=== PATIENT | female | born 1960 | race Caucasian/White ===

== ENCOUNTER → 2017-09-03 14:29 | Outpatient (CLI) | payer OTHER, SELFPAY ==
--- NOTE | 2017-09-03 14:34 | HPBI_ITS ---
MAMMOGRAPHY - BILATERAL SCREENING REASON FOR EXAM: Female, 56 years old. Routine annual screening examination. PERTINENT HISTORY: Aunt with breast cancer. TECHNIQUE: Digital bilateral breast andrzej (3D mammographic acquisition) in the CC and MLO projections. 2-D mediolateral oblique (MLO) and craniocaudad (CC) views of both breasts were obtained. CAD: Full Field Digital Mammography with Computer Added Detection was performed. COMPARISON: Comparison is made with prior examination dated February 04, 2017 and April 20, 2015. FINDINGS: Breast Composition: There are scattered areas of fibroglandular density. There are no dominant masses or suspicious calcifications. Stable asymmetry of breast tissue were more breast tissue is seen in the upper outer quadrant of the left breast as compared to the right side. Stable 5 mm well-defined nodule in the upper outer aspect of the right breast. This was demonstrated to be a cyst in the past. No other significant abnormalities are identified. There has been no significant change since the prior study. HPBI/SCREENING MAMM (CAD), BILAT IMPRESSION: Stable bilateral screening mammogram. Yearly follow-up mammogram recommended. (A) ASSESSMENT CATEGORY: BIRADS Category 2: Benign. A letter regarding these results will be sent to the patient by the facility within 30 days. Approximately 10% of breast cancers are not detected by mammography. A normal mammogram should not delay biopsy of a clinically suspicious abnormality. [id number] Electronically Signed: Real Jaquez MD at 7:59 EST Tel [phone], Service support ,
== END ==
PROVIDERS: Family Provider Internal Medicine; PCP Internal Medicine; Visit Provider Internal Medicine
DX: Z12.31 Encounter for screening mammogram for malignant neoplasm of breast (principal)
CPT/HCPCS: 77063; 77067

== ENCOUNTER → 2017-09-04 10:14 | Outpatient (CLI) | payer OTHER, SELFPAY ==
--- NOTE | 2017-09-04 10:15 | US_ITS ---
STUDY: ABDOMINAL ULTRASOUND - RIGHT UPPER QUADRANT REASON FOR VISIT: Female, 56 years old. History of fatty infiltration of the liver. TECHNIQUE: Ultrasound evaluation of the right upper quadrant was performed with real-time and static sherman-scale imaging. TECHNICAL QUALITY: Limited. Examination limited by bowel gas. COMPARISON: Comparison is made with prior study dated June 18, 2016. FINDINGS: Liver: The liver measures 14.0 cm. There is increased echogenicity consistent with fatty infiltration. The bile ducts are within normal limits. There is hepatic color flow. The direction of portal flow is hepatopetal. There is no demonstrated mass lesion. Gallbladder: The patient is status post cholecystectomy. Common Bile Duct (C.B.D.): The common bile duct measures 2.3 mm. Pancreas: There is nonvisualization of the pancreas due to overlying bowel gas. Right Kidney: Normal size of the right kidney. The right kidney measures 8.8 cm x 5.7 cm x 4.7 cm. Normal renal cortex. The right cortex measures 1.6 cm. There is no demonstrated renal mass or cyst. There is no right hydronephrosis. US/Liver IMPRESSION: Fatty infiltration of the liver. Electronically Signed: Real Jaquez MD at 12:24 EST Tel [phone], Service support ,
== END ==
PROVIDERS: Family Provider Internal Medicine; PCP Internal Medicine; Visit Provider Internal Medicine
DX: K76.0 Fatty (change of) liver, not elsewhere classified (principal)
CPT/HCPCS: 76705

== ENCOUNTER → 2017-09-05 12:42 | Outpatient (CLI) | payer OTHER, SELFPAY ==
--- NOTE | 2017-09-05 12:44 | CDU_ITS ---
Reason For Study: carotid stenosis Rt. Velocities/BP Lt. Velocities/BP Prox CCA 129.0/25.9 cm/sec. Prox CCA 116.0/35.8 cm/sec. Mid CCA 111.0/30.6 cm/sec. Mid CCA 113.0/29.9 cm/sec. Dist CCA 115.0/32.2 cm/sec. Dist CCA 96.2/32.8 cm/sec. Prox ICA 83.3/28.7 cm/sec. Prox ICA 76.8/27.6 cm/sec. Mid ICA 78.0/34.0 cm/sec. Mid ICA 106.0/45.1 cm/sec. Dist ICA 117.0/53.4 cm/sec. Dist ICA 80.3/17.0 cm/sec. Rt. ICA/CCA = 117.0/111.0=1.0. Lt. ICA/CCA = 106.0/113.0=0.94. Prox ECA 84.9/15.7 cm/sec. Prox ECA 80.3/17.0 cm/sec. Rt. Vert. 40.1/13.4 cm/sec. Lt. Vert. 49.5/20.4 cm/sec. Right Extracranial There is no significant atherosclerotic plaque noted in the right common carotid artery. There is intimal thickening but no significant atherosclerotic plaque noted in the right internal carotid artery. There is intimal thickening but no significant atherosclerotic plaque noted in the right external carotid artery. Antegrade flow is noted in the right vertebral artery. Left Extracranial There is intimal thickening but no significant atherosclerotic plaque noted in the left common carotid artery. There is intimal thickening but no significant atherosclerotic plaque noted in the left internal carotid artery. There is intimal thickening but no significant atherosclerotic plaque noted in the left external carotid artery. Antegrade flow is noted in the left vertebral artery. Procedure Carotid Duplex [id number]. The exam was diagnostic. Exam performed in department. Interpretation Summary Mild (<50%) stenosis right extracranial internal carotid. Mild (<50%) stenosis left extracranial internal carotid. Flow within the vertebral arteries is antegrade bilaterally. Ordering Physician: Anneliese Bland Referring Physician: Anneliese Bland Performed By: Paige Grimm, KEREN, RVT
== END ==
PROVIDERS: Family Provider Internal Medicine; PCP Internal Medicine; Visit Provider Internal Medicine
DX: I65.23 Occlusion and stenosis of bilateral carotid arteries (principal)
CPT/HCPCS: 93880

== ENCOUNTER → 2017-10-20 12:38 | Outpatient (CLI) | payer OTHER, SELFPAY ==
--- NOTE | 2017-10-20 12:41 | RAD_ITS ---
STUDY: X-RAY - RIGHT HAND REASON FOR EXAM: Female, 56 years old. Pain TECHNIQUE: Three view(s) of the hand were obtained. COMPARISON: None. FINDINGS: Bones: There are no acute osseous abnormalities. Joints: The visualized joints are unremarkable. Soft tissues: The soft tissues are unremarkable. Foreign body: None RAD/Hand Min 3 Views IMPRESSION: No significant abnormalities are seen radiographically in the right hand. Electronically Signed: Marie Sen MD at 9:02 EDT Tel Direct: [phone], Service support ,
--- NOTE | 2017-10-20 12:42 | VDLE_ITS ---
Reason For Study: LEG PAIN RIGHT LEFT CFV is compressible, spontaneous, phasic, GSV is normal. competent and demonstrates normal CFV is compressible, spontaneous, phasic, augmentation. competent, and demonstrates normal augmentation. FV is compressible, spontaneous, phasic, competent and demonstrates normal augmentation. POP V is compressible, spontaneous, phasic, competent and demonstrates normal augmentation. T/P Trunk is compressible. PTV is compressible. LT PerV is compressible. Hypoechoic structure noted lt medial pop space measuring 3.6 x 2.0 x 5.7 cm. Non- vascular. Interpretation Summary 1. Left leg with no DVT or SVT 2. Apparent left bakers cyst. Ordering Physician: Anneliese Bland Referring Physician: Anneliese Bland Performed By: Helen Day RVT
--- NOTE | 2017-10-20 12:50 | RAD_ITS ---
STUDY: X-RAY - RIGHT FOOT CLINICAL: Female, 56 years old. Pain TECHNIQUE: Three view(s) of the foot were obtained. COMPARISON: None. FINDINGS: Bones: There are no acute osseous abnormalities. There is a small spur off the inferior calcaneus. Joints: The visualized joints are unremarkable. Soft tissues: The soft tissues are unremarkable. Foreign body: None RAD/Foot min 3 Views IMPRESSION: No significant abnormalities are seen radiographically in the right foot. Electronically Signed: Marie Sen MD at 9:01 EDT Tel Direct: [phone], Service support ,
--- NOTE | 2017-10-20 13:01 | RAD_ITS ---
STUDY: X-RAY - LEFT HAND REASON FOR EXAM: Female, 56 years old. Pain TECHNIQUE: Three view(s) of the hand were obtained. COMPARISON: None. FINDINGS: Bones: There are no acute osseous abnormalities. Joints: The visualized joints are unremarkable. Soft tissues: The soft tissues are unremarkable. Foreign body: None RAD/Hand Min 3 Views IMPRESSION: No significant abnormalities are seen radiographically in the left hand. Electronically Signed: Marie Sen MD at 9:03 EDT Tel Direct: [phone], Service support ,
--- NOTE | 2017-10-20 13:04 | RAD_ITS ---
STUDY: X-RAY - LEFT FOOT CLINICAL: Female, 56 years old. Pain TECHNIQUE: Three view(s) of the foot were obtained. COMPARISON: None. FINDINGS: Bones: There are no acute osseous abnormalities. There is a small spur off the inferior calcaneus. Joints: The visualized joints are unremarkable. Soft tissues: The soft tissues are unremarkable. Foreign body: None RAD/Foot min 3 Views IMPRESSION: No significant abnormalities are seen radiographically in the left foot. Electronically Signed: Marie Sen MD at 8:58 EDT Tel Direct: [phone], Service support ,
== END ==
PROVIDERS: Family Provider Internal Medicine; PCP Internal Medicine; Visit Provider Internal Medicine
DX: M79.605 Pain in left leg (principal); M79.671 Pain in right foot; M79.672 Pain in left foot; M25.541 Pain in joints of right hand; M25.542 Pain in joints of left hand
CPT/HCPCS: 73130; 73630; 93971

== ENCOUNTER 2017-11-19 07:23 | Day surgery (SDC) | payer OTHER, SELFPAY ==
[2017-11-19 07:39] VITALS: BP 120/84; PULSE 76; RESP 14; TEMP 36.7; O2SAT 99; BMI 35.9
--- NOTE | 2017-11-19 08:21 | PCM.HP.STD ---
Problem List (1) Screening for colon cancer Status: Acute History of Present Illness Date of Admission: 11/19/17 The patient is a 57 year old F who presents today for screening colonoscopy. Past Medical History Allergies Latex, Natural Rubber Allergy (Verified 11/13/17 09:31) Rash nitrofurantoin [From Macrobid] Allergy (Verified 11/13/17 09:31) Rash nitrofurantoin macrocrystalline [From Macrobid] Allergy (Verified 11/13/17 09:31) Rash Sulfa (Sulfonamide Antibiotics) Allergy (Verified 11/13/17 09:31) Unknown codeine Adverse Reaction (Verified 11/13/17 09:31) Nausea/Vom/Diarrhea Home Medications: Ambulatory Orders Medication Instructions Recorded traZODone [Desyrel] 50 mg PO QHS 07/10/14 Albuterol Aerosols [Ventolin 2.5 mg INHALATION Q4H PRN PRN 11/13/17 Aerosols] Aspirin E.C. [Ecotrin] 81 mg PO DAILY@0800 11/13/17 Atorvastatin Calcium [Lipitor] 10 mg PO QODAY 11/13/17 Budesonide/Formoterol 160/4.5 1 puff INHALATION BID 11/13/17 [Symbicort 160/4.5 Mcg Inhaler (SP)] Cholecalciferol (Vitamin D3) 2,000 unit PO DAILY 11/13/17 [Vitamin D3] CycloSPORINE Ophthalmic [Restasis 1 drop EACH EYE BID 11/13/17 Ophthalmic] Escitalopram Oxalate [Lexapro] 10 mg PO QHS 11/13/17 Estradiol [Estrace Vaginal Cream] 1 dose VAGINAL QWEEK 11/13/17 Iron Carbonyl [Feosol] 45 mg PO QODAY 11/13/17 Multivitamin [Multiple Vitamins] 1 each PO DAILY 11/13/17 [place]-3 Fatty Acids/Fish Oil [Fish 1 each PO DAILY 11/13/17 Oil 1,000 mg Capsule] Ubidecarenone/Vitamin E Mixed 1 each PO QHS 11/13/17 [[id number]-Eno E 100 mg-10 Unit Sfg] Psychiatric History: No pertinent psych hx 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 Denies: Dysphasia, Ear Pain, Eye Pain, Head Aches, Hearing Changes, Sore Throat Cardiovascular: Reports: - - Patient has had heart palpitations in the past. Denies: Chest Pain, Chest Pressure, Chest Tightness Respiratory: Reports: Shortness of breath upon exertion, - - Patient will get short of breath walking up 2 flights of stairs Gastrointestinal: Denies: Abdominal Pain, Constipation, Diarrhea, Hematemesis, Nausea, Melena, Vomiting VTE Information - Inpt Only VTE Present on Admission: No VTE Mechan Device Prophylaxis: None VTE Pharm Prophylaxis ordered?: No Reason prophylaxis not ordered:: Treatment Not Indicated Patient Problems: Active and Suspected Problems Screening for colon cancer (Acute) - Physical Exam General: Alert, Oriented x3 Lungs: Clear to auscultation Cardiovascular: Regular rate, Regular Rhythm, No murmurs Abdomen: Bowel Sounds Present, Soft, Non Tender, Non-Distended Vital Signs Temp Pulse Resp BP Pulse Ox 98.1 F 76 14 120/84 H 99 11/19/17 07:39 11/19/17 07:39 11/19/17 07:39 11/19/17 07:39 11/19/17 07:39 Oxygen Delivery Method Room Air Weight: 196 lb 10.437 oz Body Mass Index (BMI) 35.9 Assessment/Plan Active and Suspected Problems Screening for colon cancer (Acute) My plan is to perform a screening colonoscopy on the patient.
[2017-11-19 08:24] VITALS: BP 109/70; BP 120/84; PULSE 73; RESP 18; TEMP 36.1; O2SAT 98
--- NOTE | 2017-11-19 08:25 | HP.PCM_ITS ---
Problem List (1) Screening for colon cancer Status: Acute History of Present Illness Date of Admission: 11/19/17 The patient is a 57 year old F who presents today for screening colonoscopy. Past Medical History Allergies Latex, Natural Rubber Allergy (Verified 11/13/17 09:31) Rash nitrofurantoin [From Macrobid] Allergy (Verified 11/13/17 09:31) Rash nitrofurantoin macrocrystalline [From Macrobid] Allergy (Verified 11/13/17 09:31 ) Rash Sulfa (Sulfonamide Antibiotics) Allergy (Verified 11/13/17 09:31) Unknown codeine Adverse Reaction (Verified 11/13/17 09:31) Nausea/Vom/Diarrhea Home Medications: Ambulatory Orders Medication Instructions Recorded traZODone [Desyrel] 50 mg PO QHS 07/10/14 Albuterol Aerosols [Ventolin 2.5 mg INHALATION Q4H PRN PRN 11/13/17 Aerosols] Aspirin E.C. [Ecotrin] 81 mg PO DAILY@0800 11/13/17 Atorvastatin Calcium [Lipitor] 10 mg PO QODAY 11/13/17 Budesonide/Formoterol 160/4.5 1 puff INHALATION BID 11/13/17 [Symbicort 160/4.5 Mcg Inhaler (SP)] Cholecalciferol (Vitamin D3) 2,000 unit PO DAILY 11/13/17 [Vitamin D3] CycloSPORINE Ophthalmic [Restasis 1 drop EACH EYE BID 11/13/17 Ophthalmic] Escitalopram Oxalate [Lexapro] 10 mg PO QHS 11/13/17 Estradiol [Estrace Vaginal Cream] 1 dose VAGINAL QWEEK 11/13/17 Iron Carbonyl [Feosol] 45 mg PO QODAY 11/13/17 Multivitamin [Multiple Vitamins] 1 each PO DAILY 11/13/17 [place]-3 Fatty Acids/Fish Oil [Fish 1 each PO DAILY 11/13/17 Oil 1,000 mg Capsule] Ubidecarenone/Vitamin E Mixed 1 each PO QHS 11/13/17 [Wzw28-Owt E 100 mg-10 Unit Sfg] Psychiatric History: No pertinent psych hx 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 Denies: Dysphasia, Ear Pain, Eye Pain, Head Aches, Hearing Changes, Sore Throat Cardiovascular: Reports: - - Patient has had heart palpitations in the past. Denies: Chest Pain, Chest Pressure, Chest Tightness Respiratory: Reports: Shortness of breath upon exertion, - - Patient will get short of breath walking up 2 flights of stairs Gastrointestinal: Denies: Abdominal Pain, Constipation, Diarrhea, Hematemesis, Nausea, Melena, Vomiting VTE Information - Inpt Only VTE Present on Admission: No VTE Mechan Device Prophylaxis: None VTE Pharm Prophylaxis ordered?: No Reason prophylaxis not ordered:: Treatment Not Indicated Patient Problems: Active and Suspected Problems Screening for colon cancer (Acute) - Physical Exam General: Alert, Oriented x3 Lungs: Clear to auscultation Cardiovascular: Regular rate, Regular Rhythm, No murmurs Abdomen: Bowel Sounds Present, Soft, Non Tender, Non-Distended Vital Signs Temp Pulse Resp BP Pulse Ox 98.1 F 76 14 120/84 H 99 11/19/17 07:39 11/19/17 07:39 11/19/17 07:39 11/19/17 07:39 11/19/17 07:39 Oxygen Delivery Method Room Air Weight: 196 lb 10.437 oz Body Mass Index (BMI) 35.9 Assessment/Plan Active and Suspected Problems Screening for colon cancer (Acute) My plan is to perform a screening colonoscopy on the patient.
--- NOTE | 2017-11-19 08:25 | PCM.OPRPT ---
Problem List (1) Screening for colon cancer Status: Acute Report of Operation Date of Procedure: 11/19/17 Pre-Operative Diagnosis: z12.11 screening colonoscopy Post-Operative Diagnosis: Same Surgery/Procedure Performed:: [id number] colonoscopy Type of Anesthesia:: MAC Anesthesiologist: Seth Quintanilla Description of Procedure: Patient was brought into the endoscopy suite. Placed on the left lateral decubitus position. Was given graded anesthesia. The scope was inserted into the rectum. The scope was directed through the sigmoid colon, descending colon, transverse colon, ascending colon, and into the cecum. Operative findings: 1. Cecum: Normal appearance no mass lesions normal ileocecal valve. 2. Ascending colon: Normal appearance no mass lesions. 3. Transverse colon: Normal appearance no mass lesions. 4. Descending colon: Normal appearance no mass lesions. 5. Sigmoid colon: Normal appearance no mass lesions a few scattered diverticuli were seen all small mouth. 6. Rectum: Normal appearance no mass lesions she had a few internal hemorrhoids identified. Scope was withdrawn digital rectal exam was performed showing no masses within the anus. Patient had an excellent bowel prep the mucosal all look normal she has a stable colonoscopy and will not need to have a repeat colonoscopy for 10 years. - Admit VTE Documentation VTE Present on Admission: No VTE Mechan Device Prophylaxis: None VTE Pharm Prophylaxis ordered?: No Reason prophylaxis not ordered:: Treatment Not Indicated
--- NOTE | 2017-11-19 08:28 | OP.PCM_ITS ---
Problem List (1) Screening for colon cancer Status: Acute Report of Operation Date of Procedure: 11/19/17 Pre-Operative Diagnosis: z12.11 screening colonoscopy Post-Operative Diagnosis: Same Surgery/Procedure Performed:: [id number] colonoscopy Type of Anesthesia:: MAC Anesthesiologist: Seth Quintanilla Description of Procedure: Patient was brought into the endoscopy suite. Placed on the left lateral decubitus position. Was given graded anesthesia. The scope was inserted into the rectum. The scope was directed through the sigmoid colon, descending colon , transverse colon, ascending colon, and into the cecum. Operative findings: 1. Cecum: Normal appearance no mass lesions normal ileocecal valve. 2. Ascending colon: Normal appearance no mass lesions. 3. Transverse colon: Normal appearance no mass lesions. 4. Descending colon: Normal appearance no mass lesions. 5. Sigmoid colon: Normal appearance no mass lesions a few scattered diverticuli were seen all small mouth. 6. Rectum: Normal appearance no mass lesions she had a few internal hemorrhoids identified. Scope was withdrawn digital rectal exam was performed showing no masses within the anus. Patient had an excellent bowel prep the mucosal all look normal she has a stable colonoscopy and will not need to have a repeat colonoscopy for 10 years. - Admit VTE Documentation VTE Present on Admission: No VTE Mechan Device Prophylaxis: None VTE Pharm Prophylaxis ordered?: No Reason prophylaxis not ordered:: Treatment Not Indicated
[2017-11-19 08:30] VITALS: BP 116/65; BP 120/84; PULSE 65; RESP 18; O2SAT 97
[2017-11-19 08:35] VITALS: BP 107/75; BP 120/84; PULSE 67; RESP 18; O2SAT 98
[2017-11-19 08:40] VITALS: BP 114/83; BP 120/84; PULSE 60; RESP 18; TEMP 36.1; O2SAT 98
[2017-11-19 08:55] VITALS: BP 120/84
== END 2017-11-19 09:11 | disposition home or self-care (01) ==
LOC: EN 07:23 → AC 07:38
PROVIDERS: Family Provider Internal Medicine; PCP Internal Medicine; Visit Provider Surgery
PROC: 0DJD8ZZ Inspection of Lower Intestinal Tract, Via Natural or Artificial Opening Endoscopic (ICD-10-PCS; CPT 45378; principal; 2017-11-19 08:25)
DX: Z12.11 Encounter for screening for malignant neoplasm of colon (principal); K64.8 Other hemorrhoids; D64.9 Anemia, unspecified; E78.00 Pure hypercholesterolemia, unspecified; F41.9 Anxiety disorder, unspecified; F32.9 Major depressive disorder, single episode, unspecified; J45.909 Unspecified asthma, uncomplicated; Z85.51 Personal history of malignant neoplasm of bladder; Z87.891 Personal history of nicotine dependence; Z98.84 Bariatric surgery status; Z86.711 Personal history of pulmonary embolism; Z87.442 Personal history of urinary calculi; Z79.51 Long term (current) use of inhaled steroids; Z79.82 Long term (current) use of aspirin; Z79.899 Other long term (current) drug therapy
CPT/HCPCS: 45378; J7120; J1610; J2405

== ENCOUNTER → 2018-01-10 10:49 | Outpatient (CLI) | payer OTHER, SELFPAY ==
[2018-01-10 11:24] LABS: Absolute Lymphocyte Count 1.74 X10^3/ul (0.83-4.51); Absolute Neutrophil Count 3.1 X10^3/uL (2.0-7.7); Basophil# 0.04 X10^3/uL; Basophil% 0.7 % (0-1); Eosinophil# 0.36 X10^3/uL; Eosinophils% 6.4 % (0-5); Hematocrit 42.2 % (37-47); Lymphocyte # 1.74 X10^3/ul (4.0); Lymphocyte % 31.1 % (19-41); Mean Corp Hgb Conc 33.2 g/gl (32-36); Mean Corpuscular Hgb 30.2 pg (27.0-32.0); Mean Corpuscular Volume 91.1 fL (81-99); Mean Platelet Vol. 11.8 fl (6.2-12.0); Monocyte# 0.32 X10^3/uL; Monocyte% 5.7 % (0-10); Neutrophil # 3.13 X10^3/uL (2.7-7.7); Neutrophil % 56.1 % (47-70); Platelet Count 210 K/mm3 (150-450); Red Blood Count 4.63 M/mm3 (4.2-5.4); White Blood Count 5.6 K/mm3 (4.4-11.0)
[2018-01-10 11:25] LABS: POSITIVE COUNT NO; POSITIVE DIFFERENTIAL NO; POSITIVE MORPHOLOGY NO
[2018-01-10 11:32] LABS: Erythrocyte Sedimentation Rate 26 mm/hr (0-30)
[2018-01-10 11:52] LABS: AST(SGOT) 18 U/L (15-37); Alanine Aminotransfer ALT/SGPT 21 U/L (13-56); Albumin, Serum 3.6 g/dL (3.2-5.0); Alkaline Phosphatase 88 U/L (45-117); Anion Gap 8 (5-15); BUN 21 mg/dL (7-18); BUN/Creat Ratio 25.4 RATIO (10-20); CRP 6.71 mg/L (0.0-3.0); Calcium,Total 9.1 mg/dL (8.5-10.1); Chloride 109 mmol/L (98-107); Cholesterol 175 mg/dL (200); Creatinine, Serum 0.83 mg/dL (0.55-1.02); EST Glomerular Filtration Rate 76 mL/min (>60); Est Glom Filt Rate - Afr Amer 92 mL/min (>60); Globulin 3.5 g/dL (2.2-4.2); Glucose 86 mg/dL (74-106); High Density Lipoprotein 75 mg/dL; Iron 87 ug/dL (50-170); Potassium 4.1 mmol/L (3.5-5.1); Protein, Total 7.1 g/dL (6.4-8.2); Sodium Level 143 mmol/L (136-145); Triglycerides 83 mg/dL; Very Low Density Lipoprotein 17 mg/dL (5-40)
[2018-01-12 09:32] LABS: Vitamin B12 368 pg/mL (211-911); Vitamin D,25 Hydroxy 32.6 ng/mL (29.95-100.01)
[2018-01-12 15:08] LABS: SJOGREN'S Anti-SS-A test < 0.2 AI (0.0-0.9)
[2018-01-12 17:49] LABS: SJOGREN'S Anti-SS-B test < 0.2 AI (0.0-0.9)
[2018-01-13 09:34] LABS: CCP IgG Antibodies 6 units (0-19)
== END ==
PROVIDERS: Family Provider Internal Medicine; PCP Internal Medicine; Visit Provider Internal Medicine
DX: E78.2 Mixed hyperlipidemia (principal); M25.541 Pain in joints of right hand; M25.542 Pain in joints of left hand; I10 Essential (primary) hypertension; E55.9 Vitamin D deficiency, unspecified; Z98.84 Bariatric surgery status
CPT/HCPCS: 36415; 80053; 80061; 82306; 82607; 83540; 85025; 85652; 86140; 86200; 86235

== ENCOUNTER → 2018-02-17 13:24 | Outpatient (CLI) | payer OTHER, SELFPAY ==
--- NOTE | 2018-02-17 13:30 | BD_ITS ---
STUDY: DUAL ENERGY X-RAY ABSORPTIOMETRY / DXA REASON FOR EXAM: Female, 57 years old. The patient is postmenopausal. No loss of height. TECHNIQUE: Bone Mineral Density (BMD) measurements of lumbar spine and bilateral hips were obtained. COMPARISON: Comparison is made with prior study dated February 06, 2016. FINDINGS: Lumbar Spine (L1-L4): g/cm2 (1.045) / T-score (-1.1) / Z-score (-0.2) Findings are suggestive of osteopenia with a low fracture risk. Left Femur Total: g/cm2 (0.969) / T-score (-0.3) / Z-score (0.4) Left Femoral Neck: g/cm2 (0.925) / T-score (-0.8) / Z-score (0.2) Right Femur Total: g/cm2 (0.908) / T-score (-0.8) / Z-score (-0.1) Right Femoral Neck: g/cm2 (0.893) / T-score (-1.0) / Z-score (0.0) The T-Scores on the most recent prior examination were: Lumbar Spine (L1-L4): There has been worsening of bone density since the previous examination. Left Femur Total: which represents a worsening of 11.3%. Right Femur Total: which represents a worsening of 4.2%. BD/Dexa Bone Density Study IMPRESSION: The patient is considered osteopenic as outlined below according to World Petr Organization (WHO) criteria with a low fracture risk. There has been worsening of bone density since the previous examination. Reference Information: The T-score is the number of standard deviations above or below the standard which is normal for young adults at their peak bone mineral density. The World Health Organization (WHO) interprets the T-scores as follows: Above -1 Normal bone density Between -1 and -2.5 Osteopenia Equal to / or below -2.5 Osteoporosis As a practical clinical guideline, osteopenia may be graded as follows: Mild -1 through -1.5 Moderate -1.6 through -2.0 Severe -2.1 through -2.4 The Z-score is the number of standard deviations above or below age-matched controls. A Z-score of less than -1.5 would be considered abnormal. References: 1. NIH Osteoporosis and Related Bone Diseases http://www.osteo.org 2. International Society for Clinical Densitometry http://www.iscd.org 3. National Osteoporosis Foundation http://www.nof.org Electronically Signed: Real Jaquez MD at 15:42 EDT Tel [phone], Service support ,
== END ==
PROVIDERS: Family Provider Internal Medicine; PCP Internal Medicine; Visit Provider Internal Medicine
DX: Z78.0 Asymptomatic menopausal state (principal)
CPT/HCPCS: 77080

== ENCOUNTER → 2018-08-03 10:23 | Outpatient (CLI) | payer OTHER, SELFPAY ==
--- NOTE | 2018-08-03 10:27 | RAD_ITS ---
STUDY: X-RAY - RIGHT KNEE REASON FOR EXAM: Female, 57 years old. Pain. TECHNIQUE: 4 view(s) of the knee. COMPARISON: None. FINDINGS: Normal visualized distal femur. Normal visualized proximal tibia and fibula. Normal proximal tibiofibular articulation. There is mild degenerative arthrosis of the medial femorotibial compartment. There is mild degenerative arthrosis of the lateral femorotibial compartment. There is mild degenerative arthrosis of the patellofemoral articulation. The soft tissue structures are unremarkable. RAD/Knee 4 or More Views IMPRESSION: Mild tricompartmental osteoarthrosis with no evidence of acute osseous injury. Electronically Signed: Jacobo Bourgeois DO at 21:40 EST , Service support ,
--- NOTE | 2018-08-03 10:27 | RAD_ITS ---
STUDY: X-RAY - LEFT KNEE REASON FOR EXAM: Female, 57 years old. Pain. TECHNIQUE: 4 view(s) of the knee. COMPARISON: None. FINDINGS: Normal visualized distal femur. Normal visualized proximal tibia and fibula. Normal proximal tibiofibular articulation. There is mild degenerative arthrosis of the medial femorotibial compartment. There is mild degenerative arthrosis of the lateral femorotibial compartment. There is mild degenerative arthrosis of the patellofemoral articulation. The soft tissue structures are unremarkable. RAD/Knee 4 or More Views IMPRESSION: Mild tricompartmental osteoarthrosis with no evidence of acute osseous injury. Electronically Signed: Jacobo Bourgeois DO at 22:04 EST , Service support ,
== END ==
PROVIDERS: Family Provider Internal Medicine; PCP Internal Medicine; Referring Provider Internal Medicine; Visit Provider Internal Medicine
DX: M25.561 Pain in right knee (principal); M25.562 Pain in left knee
CPT/HCPCS: 73564

== ENCOUNTER → 2018-09-10 08:18 | Outpatient (CLI) | payer OTHER, SELFPAY ==
--- NOTE | 2018-09-10 08:21 | BI_ITS ---
MAMMOGRAPHY - BILATERAL SCREENING REASON FOR EXAM: Female, 57 years old. Routine annual screening examination. PERTINENT HISTORY: Aunt with breast cancer. TECHNIQUE: Digital bilateral breast andrzej (3D mammographic acquisition) in the CC and MLO projections. 2-D mediolateral oblique (MLO) and craniocaudad (CC) views of both breasts were obtained. CAD: Full Field Digital Mammography with Computer Added Detection was performed. COMPARISON: Comparison is made with prior examination dated September 03, 2017 and August 07, 2016. FINDINGS: Breast Composition: There are scattered areas of fibroglandular density. There are no dominant masses or suspicious calcifications. Stable asymmetry of breast tissue were more breast tissue is seen in the upper outer quadrant of the left breast as compared to the right side. Stable 5.2 mm x 4.8 mm well-defined nodule in the upper lateral portion of the right breast. No other significant abnormalities are identified. There has been no significant change since the prior study. BI/SCREENING MAMM (CAD), BILAT IMPRESSION: Stable bilateral screening mammogram. Yearly follow-up mammogram recommended. (A) ASSESSMENT CATEGORY: BIRADS Category 2: Benign. A letter regarding these results will be sent to the patient by the facility within 30 days. Approximately 10% of breast cancers are not detected by mammography. A normal mammogram should not delay biopsy of a clinically suspicious abnormality. [id number] Electronically Signed: Real Jaquez MD at 9:42 EST , Service support ,
--- NOTE | 2018-09-10 08:42 | US_ITS ---
STUDY: ABDOMINAL ULTRASOUND - RIGHT UPPER QUADRANT REASON FOR VISIT: Female, 57 years old. Fatty liver TECHNIQUE: Ultrasound evaluation of the right upper quadrant was performed with real-time and static sherman-scale imaging. TECHNICAL QUALITY: Adequate. COMPARISON: September 04, 2017 ultrasound, November 03, 2014 CT scan abdomen. FINDINGS: Liver: The liver measures 14.7 cm. There is minimal increased echogenicity consistent with fatty infiltration. The bile ducts are within normal limits. There is hepatic color flow. The direction of portal flow is hepatopetal. There is no demonstrated mass lesion. Gallbladder: The gallbladder is been surgically removed. Common Bile Duct (C.B.D.): The common bile duct measures 2.8 mm. Pancreas: Normal size of the head, body and tail of the pancreas. There is normal echogenicity of the pancreas. There is no demonstrated pancreatic mass or cyst. Right Kidney: Normal size of the right kidney. The right kidney measures 9.2 x 5.0 x 5.1 cm. Normal renal cortex. The right cortex measures 1.9 cm. There is a visualized focus of shadowing within the periphery of the right kidney suggesting possible capsular calcification. There is focal thinning of the right renal parenchyma as seen on the prior study. There is no right hydronephrosis. US/Liver IMPRESSION: Minimal hepatic steatosis. Normal size liver. Status post cholecystectomy Persistent focal cortical thinning of the inferior pole the right kidney compatible with old infection or infarction. Electronically Signed: Valeria Gold MD at 12:09 EST Tel , Service support ,
--- NOTE | 2018-09-10 09:46 | CDU_ITS ---
Reason For Study: carotid stenosis Rt. Velocities/BP Lt. Velocities/BP Prox CCA 94.4/33.4 cm/sec. Prox CCA 107/39.9 cm/sec. Mid CCA 99.1/36.4 cm/sec. Mid CCA 112/39.3 cm/sec. Dist CCA 92.0/36.4 cm/sec. Dist CCA 87.9/35.8 cm/sec. Prox ICA 78.6/31.7 cm/sec. Prox ICA 77.0/33.0 cm/sec. Mid ICA 63.9/31.7 cm/sec. Mid ICA 68.4/24.4 cm/sec. Dist ICA 91.5/41.6 cm/sec. Dist ICA 69.0/33.4 cm/sec. Rt. ICA/CCA = .9. Lt. ICA/CCA = .7. Prox ECA 65.1/14.7 cm/sec. Prox ECA 69.9/16.4 cm/sec. Rt. Vert. 42.2/16.4 cm/sec. Lt. Vert. 44.6/19.9 cm/sec. Right Extracranial There is intimal thickening but no significant atherosclerotic plaque noted in the right common carotid artery. There is intimal thickening but no significant atherosclerotic plaque noted in the right internal carotid artery. There is intimal thickening but no significant atherosclerotic plaque noted in the right external carotid artery. Antegrade flow is noted in the right vertebral artery. Left Extracranial There is intimal thickening but no significant atherosclerotic plaque noted in the left common carotid artery. There is intimal thickening but no significant atherosclerotic plaque noted in the left internal carotid artery. There is intimal thickening but no significant atherosclerotic plaque noted in the left external carotid artery. Antegrade flow is noted in the left vertebral artery. Procedure Carotid Duplex 27810. The exam was diagnostic. Exam performed in department. Interpretation Summary Mild (<50%) stenosis right extracranial internal carotid. Mild (<50%) stenosis left extracranial internal carotid. Flow within the vertebral arteries is antegrade bilaterally. Ordering Physician: Anneliese Bland Performed By: Blu Palm RVT
== END ==
PROVIDERS: Family Provider Internal Medicine; PCP Internal Medicine; Referring Provider Internal Medicine; Visit Provider Internal Medicine
DX: I65.23 Occlusion and stenosis of bilateral carotid arteries (principal); K76.0 Fatty (change of) liver, not elsewhere classified; Z12.31 Encounter for screening mammogram for malignant neoplasm of breast
CPT/HCPCS: 76705; 77063; 77067; 93880

== ENCOUNTER → 2019-09-13 07:50 | Outpatient (CLI) | payer OTHER, SELFPAY ==
--- NOTE | 2019-09-13 07:59 | US_ITS ---
STUDY: ABDOMINAL ULTRASOUND - RIGHT UPPER QUADRANT REASON FOR VISIT: Female, 58 years old fatty liver TECHNIQUE: Ultrasound evaluation of the right upper quadrant was performed with real-time and static sherman-scale imaging. TECHNICAL QUALITY: Adequate. COMPARISON: 09/10/2018 FINDINGS: Liver: The liver measures 10.3 cm. There is increased echogenicity consistent with fatty infiltration. The bile ducts are within normal limits. There is hepatic color flow. The direction of portal flow is hepatopetal. There is no demonstrated mass lesion. Gallbladder: The patient is status post cholecystectomy.. Common Bile Duct (C.B.D.): The common bile duct measures 4 mm. Pancreas: Normal size of the head, body and tail of the pancreas. There is normal echogenicity of the pancreas. There is no demonstrated pancreatic mass or cyst. Right Kidney: Normal size of the right kidney. The right kidney measures 8.5 cm. Normal renal cortex. The right cortex measures 0.8 cm. Scar in the midsection the right kidney. There is no right hydronephrosis. US/Liver IMPRESSION: Fatty infiltration of the liver. Electronically Signed: Vince Nuñez MD at 13:52 EST Tel , Service support ,
--- NOTE | 2019-09-13 07:59 | BI_ITS ---
MAMMOGRAPHY - BILATERAL SCREENING REASON FOR EXAM: Female, 58 years old. Routine annual screening examination. PERTINENT HISTORY: Family and had breast cancer BILATERAL DIGITAL MAMMOGRAM WITH TOMOSYNTHESIS: Mediolateraloblique and craniocaudal views demonstrate no evidence of dominant parenchymal masses. No cluster of microcalcification or architectural distortion is seen. No evidence of skin thickening. No significant change since 09/10/2018. Breast Density: There are scattered areas of fibroglandular density. CAD was used to assist in final assessment. IMPRESSION: NORMAL MAMMOGRAM BILATERALLY. FINAL ASSESSMENT: BIRAD 1 (NEGATIVE) YEARLY MAMMOGRAM RECOMMENDED Electronically Signed: Thomas Holloway, at 17:05 EST Tel , Service support , BI/SCREEN MAMM (CAD) W/AMISH OROZCO
--- NOTE | 2019-09-13 08:43 | CDU_ITS ---
Reason For Study: STENOSIS Rt. Velocities/BP Lt. Velocities/BP Prox CCA 98/30 cm/sec. Prox CCA 89/33 cm/sec. Mid CCA 102/32 cm/sec. Mid CCA 105/39 cm/sec. Dist CCA 102/42 cm/sec. Dist CCA 87/32 cm/sec. Prox ICA 92/32 cm/sec. Prox ICA 96/32 cm/sec. Mid ICA 64/27 cm/sec. Mid ICA 93/49 cm/sec. Dist ICA 80/38 cm/sec. Dist ICA 127/54 cm/sec. Rt. ICA/CCA = .9. Lt. ICA/CCA = 1.2. Prox ECA 71/19 cm/sec. Prox ECA 82/21 cm/sec. Rt. Vert. 35/14 cm/sec. Lt. Vert. 58/25 cm/sec. Right Extracranial There is homogeneous, smooth atherosclerotic plaque noted in the right common carotid artery. There is homogeneous, smooth atherosclerotic plaque noted in the right internal carotid artery. There is no significant atherosclerotic plaque noted in the right external carotid artery. Antegrade flow is noted in the right vertebral artery. Left Extracranial There is homogeneous, smooth atherosclerotic plaque noted in the left common carotid artery. There is heterogeneous, smooth atherosclerotic plaque noted in the left internal carotid artery. There is homogeneous, smooth atherosclerotic plaque noted in the left external carotid artery. Antegrade flow is noted in the left vertebral artery. Interpretation Summary Mild (<50%) stenosis right extracranial internal carotid. Mild (<50%) stenosis left extracranial internal carotid. Flow within the vertebral arteries is antegrade bilaterally. Ordering Physician: Anneliese Bland Referring Physician: Anneliese Bland Performed By: Kylee Lambert, RDCS, RVT
== END ==
PROVIDERS: Family Provider Internal Medicine; PCP Internal Medicine; Referring Provider Internal Medicine; Visit Provider Internal Medicine
DX: Z12.31 Encounter for screening mammogram for malignant neoplasm of breast (principal); I65.23 Occlusion and stenosis of bilateral carotid arteries; K76.0 Fatty (change of) liver, not elsewhere classified
CPT/HCPCS: 76705; 77063; 77067; 93880

== ENCOUNTER → 2020-04-25 10:57 | Outpatient (CLI) | payer OTHER, SELFPAY ==
[2020-04-25 11:10] LABS: Absolute Lymphocyte Count 1.32 X10^3/uL (0.83-4.51); Absolute Neutrophil Count 3.3 X10^3/uL (2.0-7.7); Basophil# 0.04 X10^3/uL; Basophil% 0.7 % (0-1); Eosinophil# 0.45 X10^3/uL; Eosinophils% 8.1 % (0-5); Hematocrit 42.9 % (37-47); Hemoglobin 13.8 g/dL (12.0-15.0); Lymphocyte # 1.32 X10^3/ul (4.0); Lymphocyte % 23.7 % (19-41); Mean Corp Hgb Conc 32.2 g/dL (32-36); Mean Corpuscular Hgb 30.7 pg (27.0-32.0); Mean Corpuscular Volume 95.3 fL (81-99); Monocyte# 0.46 X10^3/uL; Monocyte% 8.3 % (0-10); NRBC Flagged by Analyzer 0 % (0-5); Neutrophil # 3.29 X10^3/uL (2.7-7.7); Platelet Count 210 K/mm3 (150-450); RBC Distribution Width CV 12.9 % (11.6-14.6); RBC Distribution Width SD 44.8 fl (35.1-43.9); White Blood Count 5.6 K/mm3 (4.4-11.0)
[2020-04-25 11:19] LABS: D-Dimer Quantitative (DVT/PE) <= 0.27 FEU/ug/m (0.27-0.49)
[2020-04-25 11:31] LABS: AST(SGOT) 17 U/L (15-37); Alanine Aminotransfer ALT/SGPT 22 U/L (13-56); Albumin, Serum 3.6 g/dL (3.2-5.0); Alkaline Phosphatase 97 U/L (45-117); Anion Gap 4 (5-15); BUN 18 mg/dL (7-18); BUN/Creat Ratio 19.9 RATIO (10-20); Calcium,Total 9.3 mg/dL (8.5-10.1); Chloride 109 mmol/L (98-107); EST Glomerular Filtration Rate 68 mL/min (>60); Est Glom Filt Rate - Afr Amer 82 mL/min (>60); Globulin 3.7 g/dL (2.2-4.2); Glucose 91 mg/dL (74-106); Potassium 4.1 mmol/L (3.5-5.1); Protein, Total 7.3 g/dL (6.4-8.2); Sodium Level 140 mmol/L (136-145); Thyroid Stim Hormone (TSH) 3.22 uIU/mL (0.358-3.74)
== END ==
PROVIDERS: PCP Internal Medicine; Referring Provider Internal Medicine; Visit Provider Internal Medicine
DX: R07.89 Other chest pain (principal); R00.2 Palpitations
CPT/HCPCS: 80053; 84443; 84484; 85025; 85379

== ENCOUNTER → 2020-05-01 12:56 | Outpatient (CLI) | payer OTHER, SELFPAY ==
--- NOTE | 2020-05-01 13:00 | ECHOCS_ITS ---
Reason For Study: CP Procedure This was a 2D Doppler, Color Flow transthoracic echocardiogram. The study was technically difficult. Contrast injection was performed. Exam performed in department. Left Ventricle Normal LV size. Left ventricular systolic function is normal. The estimated ejection fraction is 65 %. No evidence for diastolic dysfunction. Right Ventricle Normal RV size. Normal systolic function. Atria Normal left atrium. Normal right atrium. No doppler evidence for ASD. Mitral Valve There is no mitral annular calcification. Normal mitral valve. Trivial mitral valve insufficiency. Tricuspid Valve Normal tricuspid valve. Trivial tricuspid valve insufficiency. Unable to estimate RV systolic pressure/pulmonary artery pressure due to technically difficult study. Aortic Valve Trisinus/trileaflet aortic valve. Moderate focal aortic valve calcification. Pulmonic Valve The pulmonic valve is not well visualized. Trivial pulmonic valve insufficiency. Great Vessels Normal sized aortic root. Pericardium/Pleural No pericardial effusion. MMode/2D Measurements & Calculations LVIDd: 3.9 cm IVSd: 1.2 cm Ao root diam: 2.9 cm LVIDs: 2.2 cm LVPWd: 1.1 cm LA dimension: 3.8 cm RVDd: 2.7 cm FS: 44.3 % LAV(MOD-bp): 33.3 ml LA A4 area: 13.5 cm2 RA A4 area: 11.7 cm2 LAV(MOD-bp) Indexed: 16.6 ml/m2 LAV(MOD-sp2): 37.3 ml LAV(MOD-sp4): 29.5 ml Time Measurements MV dec time: 0.20 sec Doppler Measurements & Calculations MV E max raymundo: 91.4 cm/sec Lat Peak E' Raymundo: 12.6 cm/sec Med Peak E' Raymundo: 8.6 cm/sec MV A max raymundo: 83.2 cm/sec E/E' lat: 7.3 E/E' med: 10.6 MV E/A: 1.1 MV V2 max: 104.0 cm/sec MV P1/2t max raymundo: 105.0 cm/sec Ao V2 max: 160.8 cm/sec MV max P.3 mmHg MV P1/2t: 78.6 msec Ao max P.3 mmHg MV V2 mean: 57.5 cm/sec MV dec slope: 391.1 cm/sec2 MV mean P.6 mmHg MVA(P1/2t): 2.8 cm2 MV V2 VTI: 29.6 cm LV V1 max: 74.6 cm/sec PA V2 max: 161.0 cm/sec LV V1 max P.2 mmHg Interpretation Summary The study was technically difficult. Contrast injection was performed. Left ventricular systolic function is normal. The estimated ejection fraction is 65 %. Trivial mitral valve insufficiency. Trivial tricuspid valve insufficiency. Moderate focal aortic valve calcification. Trivial pulmonic valve insufficiency. Unable to estimate RV systolic pressure/pulmonary artery pressure due to technically difficult study. No evidence for diastolic dysfunction. Ordering Physician: Anneliese Bland Referring Physician: Anneliese Bland Performed By: Rishi Casey RCS
== END ==
PROVIDERS: PCP Internal Medicine; Referring Provider Internal Medicine; Visit Provider Internal Medicine
DX: R00.2 Palpitations (principal); R07.89 Other chest pain
CPT/HCPCS: 93225; 93226; 93306; Q9957; A4216; C8929

== ENCOUNTER → 2020-05-09 14:25 | Outpatient (CLI) | payer OTHER, SELFPAY ==
--- NOTE | 2020-05-09 14:27 | CT_ITS ---
STUDY: CTA CHEST REASON FOR EXAM: Female, 59 years old. SOB, HX-PE, CAD, HTN, BLADDER CA RADIATION DOSAGE (If Supplied By Facility): CTDIvol = ( 9.90 ) mGy, DLP = ( 472.77 ) mGycm TECHNIQUE: The examination was performed with the intravenous administration of IV 100mL Isovue-370. Post-processing of the angiographic images was performed, with multiplanar reformation and 3D reconstruction. Individualized dose optimization techniques were used for this CT. COMPARISON: None. FINDINGS: Small benign appearing bilateral axillary lymph nodes. Normal enhancement of the main pulmonary artery and right and left pulmonary arteries. Normal enhancement of the bilateral peripheral pulmonary arteries. There is no demonstrated pulmonary embolism. Normal thoracic aorta and visualized great vessels. There is no demonstrated aortic dissection. Normal heart and pericardium. Normal mediastinum. Normal hilar regions. Normal visualized trachea and bronchi. The lungs are well expanded. Normal pulmonary parenchyma. Normal pleura. Normal chest wall structures. There are degenerative changes of thoracic spine. The patient is status post cholecystectomy. There is evidence of a subtotal gastrectomy. CT/CTA Chest W/WO Contrast IMPRESSION: No acute abnormalities. Electronically Signed: Real Jaquez, at 15:40 EDT , Service support ,
== END ==
PROVIDERS: PCP Internal Medicine; Referring Provider Internal Medicine; Visit Provider Internal Medicine
DX: R06.02 Shortness of breath (principal)
CPT/HCPCS: 71275

== ENCOUNTER → 2020-05-24 06:00 | Outpatient (CLI) | payer OTHER, SELFPAY ==
--- NOTE | 2020-05-24 09:32 | STRESSREP ---
Stress Test Report Date: 05-24-2020 Procedure: Exercise tolerance test/imaging study Indications: Chest pain Consent: Per the patient Procedure: The patient exercised on a Manish protocol for 4 minutes completing Stage 1 and 1 minute of Stage II achieving a peak heart rate of 150 bpm (92% predicted maximal heart rate) with a peak blood pressure 142/76 mmHg and a peak MET capacity of 5 METs. The baseline ECG demonstrated normal sinus rhythm. The peak exercise ECG demonstrated no obvious ECG changes. There was an isolated PAC during recovery. The functional capacity was considered decreased. There was no complaint of chest discomfort during exercise or recovery. The examination was discontinued secondary to dyspnea. Impression: 1. Technically adequate (percent predicted maximal heart rate greater than 85%) exercise tolerance test 2. Peak exercise ECG with no obvious ECG changes 3. There is an isolated PAC during recovery 4. Nuclear images pending Myocardial perfusion imaging study: Technique: The patient was injected with 14.3 mCi of technetium 99m Cardiolite and subsequently rest SPECT Cardiolite nuclear imaging was obtained in the horizontal long, vertical long, and short axis views. The patient exercised on a Manish protocol for 4 minutes completing Stage 1 and 1 minute of Stage II achieving a peak heart rate of 150 bpm (92% predicted maximal heart rate) with a peak blood pressure 142/76 mmHg and a peak MET capacity of 5 METs. The patient was injected with 44.8 mCi of technetium 99m Cardiolite and subsequently stress SPECT Cardiolite nuclear imaging was obtained in the horizontal long, vertical long, and short axis views. A gated Cardiolite study at peak stress was obtained. Interpretation: Rest and stress SPECT Cardiolite nuclear imaging status post realignment, normalization, and attenuation correction, demonstrates the appearance of relative uniform tracer uptake and myocardial perfusion appearing within normal limits. There is end systolic thickening and brightening. The gated Cardiolite study demonstrates myocardial thickening and inward wall motion. The reported LVEF is 80%. Impression: 1. Rest and stress SPECT Cardiolite nuclear imaging demonstrate relative uniform tracer uptake and myocardial perfusion appearing within normal limits. 2. The gated Cardiolite study reports an LVEF of 80%. This note was generated with [employer] software. It may contain incorrect words, spelling, and punctuation that were not noted in checking the note before signing.
== END ==
PROVIDERS: PCP Internal Medicine; Referring Provider Internal Medicine; Visit Provider Internal Medicine
DX: R07.89 Other chest pain (principal)
CPT/HCPCS: 78452; 93017; A9500; A4216

== ENCOUNTER → 2020-07-04 13:54 | Outpatient (CLI) | payer OTHER, SELFPAY ==
--- NOTE | 2020-07-04 13:59 | BD_ITS ---
STUDY: DUAL ENERGY X-RAY ABSORPTIOMETRY / DXA REASON FOR EXAM: Female, 59 years old. DIAGNOSTIC CARDIAC SONOGRAPHER -- HX OF HRT -- HX OF SMOKING -- USES STEROID MEDS NEEDED FOR ASTHMA -- TAKES MULTIVITAMIN -- DOES LITTLE EXERCISE -- FAMILY HX OF OSTEO- -- HX OF RIGHT SHOULDER FX -- NO MATTHEW TECHNIQUE: Bone Mineral Density (BMD) measurements of lumbar spine and bilateral hips were obtained. COMPARISON: Comparison is made with prior study dated 02/17/2018. FINDINGS: Lumbar Spine (L1-L4): g/cm2 (0.945) / T-score (-2.1) / Z-score (-1.0) Findings are suggestive of osteopenia with a high fracture risk. Left Femur Total: g/cm2 (1.006) / T-score (0.0) / Z-score (0.8) Left Femoral Neck: g/cm2 (0.926) / T-score (-0.8) / Z-score (0.4) Right Femur Total: g/cm2 (0.962) / T-score (-0.4) / Z-score (0.5) Right Femoral Neck: g/cm2 (0.897) / T-score (-1.0) / Z-score (0.2) The T-Scores on the most recent prior examination were: Lumbar Spine (L1-L4): There has been worsening of bone density since the previous examination. Left Femur Total: which represents an improvement of 3.8%. Right Femur Total: which represents an improvement of 5.9%. BD/Dexa Bone Density Study IMPRESSION: The patient is considered osteopenic as outlined below according to World Petr Organization (WHO) criteria with a high fracture risk. There has been improvement of bone density since the previous examination. Reference Information: The T-score is the number of standard deviations above or below the standard which is normal for young adults at their peak bone mineral density. The World Health Organization (WHO) interprets the T-scores as follows: Above -1 Normal bone density Between -1 and -2.5 Osteopenia Equal to / or below -2.5 Osteoporosis As a practical clinical guideline, osteopenia may be graded as follows: Mild -1 through -1.5 Moderate -1.6 through -2.0 Severe -2.1 through -2.4 The Z-score is the number of standard deviations above or below age-matched controls. A Z-score of less than -1.5 would be considered abnormal. References: 1. NIH Osteoporosis and Related Bone Diseases www osteo.org 2. International Society for Clinical Densitometry www iscd.org 3. National Osteoporosis Foundation www nof.org Electronically Signed: Real Jaquez, at 9:51 EST , Service support ,
== END ==
PROVIDERS: PCP Internal Medicine; Referring Provider Internal Medicine; Visit Provider Internal Medicine
DX: Z78.0 Asymptomatic menopausal state (principal)
CPT/HCPCS: 77080

== ENCOUNTER → 2020-09-29 10:44 | Outpatient (CLI) | payer OTHER, SELFPAY ==
--- NOTE | 2020-09-29 10:51 | BI_ITS ---
MAMMOGRAPHY - BILATERAL SCREENING REASON FOR EXAM: Female, 59 years old. Routine annual screening examination. PERTINENT HISTORY: Aunt with breast cancer. TECHNIQUE: Digital bilateral breast amish (3D mammographic acquisition) in the CC and MLO projections. 2-D mediolateral oblique (MLO) and craniocaudad (CC) views of both breasts were obtained. CAD: Full Field Digital Mammography with Computer Added Detection was performed. COMPARISON: Comparison is made with prior examination of 09/13/2019 and 09/10/2018. FINDINGS: Breast Composition: There are scattered areas of fibroglandular density. There are no dominant masses or suspicious calcifications. Stable asymmetry of breast tissue where more breast tissue is seen in the upper lateral aspect of the left breast as compared to the right side. Stable 5 mm well-defined nodule in the upper outer aspect of the right breast Stable small benign-appearing bilateral axillary lymph nodes. No other significant abnormalities are identified. There has been no significant change since the prior study. BI/SCRN MAMM (CAD)W/AMISH BILAT IMPRESSION: Stable bilateral screening mammogram. Yearly follow-up mammogram recommended. (A) ASSESSMENT CATEGORY: BIRADS Category 2: Benign. A letter regarding these results will be sent to the patient by the facility within 30 days. Approximately 10% of breast cancers are not detected by mammography. A normal mammogram should not delay biopsy of a clinically suspicious abnormality. [id number] Electronically Signed: Real Jaquez MD at 14:00 EDT , Service support ,
--- NOTE | 2020-09-29 10:51 | US_ITS ---
INDICATION: FATTY LIVER EXAMINATION: Ultrasound US Abdomen Limited (quadrant) TECHNIQUE: Cedillo-scale and color Doppler imaging was performed of the abdomen. COMPARISON: None. Findings: The liver is diffusely homogenous with overall increased echogenicity. There is no evidence of contour nodularity. No focal hepatic mass is identified. The main portal vein is normal in size and patent demonstrating hepatopetal flow. The gallbladder is unremarkable without evidence of stones, wall thickening or pericholecystic fluid. Sonographic Padgett''s tenderness is not appreciated. There is no evidence of intrahepatic biliary ductal dilatation. The CBD is nondilated measuring 4 mm at the level of the nemo hepatis. The visualized portions of the pancreas are unremarkable without evidence of focal or diffuse enlargement. Specifically, the tail is obscured by overlying bowel gas. Right kidney measures 9.8 cm in length. It is normal in echogenicity. There is a scar in the midsection of the right kidney. No focal renal lesion is identified. There is no evidence of hydronephrosis. US/Liver IMPRESSION: Hyperechoic liver without evidence of contour nodularity. Findings are nonspecific and may be consistent with sequelae of fatty infiltration or other forms of diffuse liver disease. No evidence of focal hepatic mass. Remainder of the exam is otherwise unremarkable. Electronically Signed: Shaw Thomson MD at 18:23 EST Tel , Service support ,
--- NOTE | 2020-09-29 12:59 | CDU_ITS ---
Reason For Study: Carotid Stenosis Rt. Velocities/BP Lt. Velocities/BP Prox CCA 130/34 cm/sec. Prox CCA 124/30 cm/sec. Mid CCA 145/37 cm/sec. Mid CCA 133/32 cm/sec. Dist CCA 119/33 cm/sec. Dist CCA 113/28 cm/sec. Prox ICA 115/23 cm/sec. Prox ICA 116/30 cm/sec. Mid ICA 106/47 cm/sec. Mid ICA 99/35 cm/sec. Dist ICA 97/41 cm/sec. Dist ICA 125/47 cm/sec. Rt. ICA/CCA = 0.8. Lt. ICA/CCA = 0.9. Prox ECA 95/14 cm/sec. Prox ECA 142/19 cm/sec. Rt. Vert. 61/16 cm/sec. Lt. Vert. 66/24 cm/sec. Right Extracranial There is intimal thickening but no significant atherosclerotic plaque noted in the right common carotid artery. There is heterogeneous, smooth atherosclerotic plaque noted in the right internal carotid artery. There is intimal thickening but no significant atherosclerotic plaque noted in the right external carotid artery. Antegrade flow is noted in the right vertebral artery. Left Extracranial There is intimal thickening but no significant atherosclerotic plaque noted in the left common carotid artery. There is heterogeneous, irregular atherosclerotic plaque noted in the left internal carotid artery. There is no significant atherosclerotic plaque noted in the left external carotid artery. Antegrade flow is noted in the left vertebral artery. Procedure Carotid Duplex 51968. Exam performed in department. Interpretation Summary Mild (<50%) stenosis right extracranial internal carotid. Mild (<50%) stenosis left extracranial internal carotid. Flow within the vertebral arteries is antegrade bilaterally. There has been no significant change since a prior study on 09/13/2019. Ordering Physician: Anneliese Bland Referring Physician: Anneliese Bland Performed By: Micaela Wheeler, RDCS, RVT
== END ==
PROVIDERS: PCP Internal Medicine; Referring Provider Internal Medicine; Visit Provider Internal Medicine
DX: I65.23 Occlusion and stenosis of bilateral carotid arteries (principal); K76.0 Fatty (change of) liver, not elsewhere classified; Z12.31 Encounter for screening mammogram for malignant neoplasm of breast
CPT/HCPCS: 76705; 77063; 77067; 93880

== ENCOUNTER → 2022-03-15 | Outpatient (CLI) | payer OTHER, SELFPAY ==
--- NOTE | 2022-03-15 08:24 | US_ITS ---
STUDY: ABDOMINAL ULTRASOUND - RIGHT UPPER QUADRANT REASON FOR VISIT: Female, 61 years old FATTY LIVER TECHNIQUE: Ultrasound evaluation of the right upper quadrant was performed with real-time and static sherman-scale imaging. TECHNICAL QUALITY: Adequate. COMPARISON: Comparison is made with prior study dated 09/29/2020. FINDINGS: Liver: The liver measures 16.8 cm. There is increased echogenicity consistent with fatty infiltration. The bile ducts are within normal limits. There is hepatic color flow. The direction of portal flow is hepatopetal. There is no demonstrated mass lesion. Gallbladder: The patient is status post cholecystectomy. Common Bile Duct (C.B.D.): The common bile duct measures 4.0 mm. Pancreas: Normal size of the head, body and tail of the pancreas. There is normal echogenicity of the pancreas. There is no demonstrated pancreatic mass or cyst. Right Kidney: Normal size of the right kidney. The right kidney measures 9.9 cm x 5 cm x 5 cm. Normal renal cortex. The right cortex measures 1.6 cm. There is no demonstrated renal mass or cyst. There is no right hydronephrosis. Focal cortical scarring in the inferior pole of the right kidney. US/Liver IMPRESSION: Fatty infiltration of the liver with focal areas of fatty sparing. Electronically Signed: Real Jaquez MD at 10:40 EDT ,
--- NOTE | 2022-03-15 08:25 | ECHOD_ITS ---
Reason For Study: Palpitations Procedure This was a 2D Doppler, Color Flow transthoracic echocardiogram. Exam performed in department. Left Ventricle Normal LV size. The estimated ejection fraction is 65 %. No evidence for diastolic dysfunction. No regional wall motion abnormalities noted. Right Ventricle Normal RV size. Normal systolic function. Atria Normal left atrium. Normal right atrium. No doppler evidence for ASD. Mitral Valve There is no mitral valve stenosis. No mitral valve insufficiency. Tricuspid Valve There is no tricuspid stenosis. Trivial tricuspid valve insufficiency. Unable to estimate RV systolic pressure due to insufficient tricuspid regurgitant envelope. Aortic Valve Trisinus/trileaflet aortic valve. Aortic sclerosis, no stenosis. There is no aortic stenosis. No aortic valve insufficiency. Pulmonic Valve There is no pulmonic valvular stenosis. No pulmonic valve insufficiency. Great Vessels Normal aortic root. Pericardium/Pleural No pericardial effusion. MMode/2D Measurements & Calculations LVIDd: 4.4 cm IVSd: 0.92 cm Ao root diam: 3.0 cm LVIDs: 2.7 cm LVPWd: 0.72 cm RVDd: 2.6 cm FS: 38.5 % LAV(MOD-bp): 26.9 ml LVAd ap4: 21.6 cm2 SV(MOD-sp4): 31.1 ml LAV(MOD-bp) Indexed: 13.2 ml/m2 LVLd ap4: 7.8 cm LAV(MOD-sp2): 26.9 ml EDV(MOD-sp4): 48.1 ml LAV(MOD-sp4): 22.9 ml EDV(sp4-el): 50.4 ml LVAs ap4: 11.2 cm2 LVLs ap4: 6.3 cm ESV(MOD-sp4): 17.0 ml ESV(sp4-el): 16.9 ml EF(MOD-sp4): 64.6 % EF(sp4-el): 66.4 % SV(sp4-el): 33.4 ml LA A4 area: 12.7 cm2 LA dimension(2D): 3.8 cm RA A4 area: 11.3 cm2 Doppler Measurements & Calculations MV E max raymundo: 68.2 cm/sec Lat Peak E' Raymundo: 13.8 cm/sec Med Peak E' Raymundo: 7.2 cm/sec MV A max raymundo: 81.5 cm/sec E/E' lat: 4.9 E/E' med: 9.5 MV E/A: 0.84 Ao V2 max: 171.4 cm/sec LV V1 max: 98.7 cm/sec PA V2 max: 99.5 cm/sec Ao max P.8 mmHg LV V1 max P.9 mmHg Ao V2 mean: 115.1 cm/sec Ao mean P.9 mmHg Ao V2 VTI: 37.3 cm TR max raymundo: 207.7 cm/sec TR max P.3 mmHg ECHO/Echo Complete Interpretation Summary The estimated ejection fraction is 65 %. No evidence for diastolic dysfunction. Ordering Physician: Anneliese Bland Referring Physician: Anneliese Bland Performed By: Micaela Wheeler, KEREN, RVT
--- NOTE | 2022-03-15 09:53 | BI_ITS ---
MAMMOGRAPHY - BILATERAL SCREENING REASON FOR EXAM: Female, 61 years old. Routine annual screening examination. PERTINENT HISTORY: Aunt with breast cancer. TECHNIQUE: Digital bilateral breast amish (3D mammographic acquisition) in the CC and MLO projections. 2-D mediolateral oblique (MLO) and craniocaudad (CC) views of both breasts were obtained. CAD: Full Field Digital Mammography with Computer Added Detection was performed. COMPARISON: Comparison is made with prior study dated 09/29/2020 and 09/13/2019. FINDINGS: Breast Composition: There are scattered areas of fibroglandular density. There are no dominant masses or suspicious calcifications. Stable asymmetry of breast tissue with more breast tissue is seen in the upper lateral aspect of the left breast as compared to the right side. Stable 5 mm well-defined nodule in the upper lateral aspect of the right breast suggestive of a small lymph node. Stable small benign appearing bilateral axillary. No other significant abnormalities are identified. There has been no significant change since the prior study. BI/SCRN MAMM (CAD)W/AMISH BILAT IMPRESSION: Stable bilateral screening mammogram. Yearly follow-up mammogram recommended. (A) ASSESSMENT CATEGORY: BIRADS Category 2: Benign. A letter regarding these results will be sent to the patient by the facility within 30 days. Approximately 10% of breast cancers are not detected by mammography. A normal mammogram should not delay biopsy of a clinically suspicious abnormality. [id number] Electronically Signed: Real Jaquez MD at 11:07 EDT ,
== END | disposition home or self-care (01) ==
LOC: OPBI 08:21
PROVIDERS: PCP Internal Medicine; Referring Provider Internal Medicine; Visit Provider Internal Medicine
DX: Z12.31 Encounter for screening mammogram for malignant neoplasm of breast (principal); K76.0 Fatty (change of) liver, not elsewhere classified; R00.2 Palpitations; I65.23 Occlusion and stenosis of bilateral carotid arteries
CPT/HCPCS: 76705; 77063; 77067; 93225; 93226; 93306

== ENCOUNTER → 2022-04-15 | Outpatient (CLI) | payer OTHER, SELFPAY ==
--- NOTE | 2022-04-15 08:56 | CDU_ITS ---
Reason For Study: Stenosis Rt. Velocities/BP Lt. Velocities/BP Prox CCA 71.1/21.1 cm/sec. Prox CCA 87.6/28.6 cm/sec. Mid CCA 84.4/27.7 cm/sec. Mid CCA 83.9/26.2 cm/sec. Dist CCA 91.6/30 cm/sec. Dist CCA 75.3/24.9 cm/sec. Prox ICA 65.2/15.7 cm/sec. Prox ICA 56.9/24.9 cm/sec. Mid ICA 79/33.5 cm/sec. Mid ICA 81.4/33.5 cm/sec. Dist ICA 92.5/36 cm/sec. Dist ICA 87.6/33.5 cm/sec. Rt. ICA/CCA = 1.10. Lt. ICA/CCA = 1.04. Prox ECA 70.7/12.4 cm/sec. Prox ECA 70.4/17.6 cm/sec. Rt. Vert. 39.7/12.6 cm/sec. Lt. Vert. 43.3/18.8 cm/sec. Right Extracranial There is intimal thickening but no significant atherosclerotic plaque noted in the right common carotid artery. There is heterogeneous, irregular atherosclerotic plaque noted in the right internal carotid artery. There is intimal thickening but no significant atherosclerotic plaque noted in the right external carotid artery. Antegrade flow is noted in the right vertebral artery. Left Extracranial There is intimal thickening but no significant atherosclerotic plaque noted in the left common carotid artery. There is heterogeneous, irregular atherosclerotic plaque noted in the left internal carotid artery. There is intimal thickening but no significant atherosclerotic plaque noted in the left external carotid artery. Antegrade flow is noted in the left vertebral artery. Procedure This is a Carotid Duplex examination using B-mode, color flow and specral Doppler. Carotid Duplex 43500. Exam performed in department. VL/Carotid Duplex Ultrasound Interpretation Summary Mild (<50%) stenosis right extracranial internal carotid. Mild (<50%) stenosis left extracranial internal carotid. Flow within the vertebral arteries is antegrade bilaterally. Ordering Physician: Anneliese Bland Referring Physician: Anneliese Bland Performed By: Arcelia Ohara RVT
== END | disposition home or self-care (01) ==
LOC: CVS 08:55
PROVIDERS: PCP Internal Medicine; Referring Provider Internal Medicine; Visit Provider Internal Medicine
DX: I65.23 Occlusion and stenosis of bilateral carotid arteries (principal); R00.2 Palpitations
CPT/HCPCS: 93880

== ENCOUNTER → 2022-05-27 | Outpatient (CLI) | payer OTHER, SELFPAY ==
[2022-05-27 12:54] LABS: Erythrocyte Sedimentation Rate 21 mm/hr (0-30)
[2022-05-27 12:57] LABS: Absolute Lymphocyte Count 3.08 X10^3/uL (0.83-4.51); Absolute Neutrophil Count 6.4 X10^3/uL (2.0-7.7); Basophil# 0.06 X10^3/uL; Basophil% 0.6 % (0-1); Eosinophil# 0.27 X10^3/uL; Eosinophils% 2.5 % (0-5); Hematocrit 44.8 % (37-47); Hemoglobin 14.8 g/dL (12.0-15.0); Lymphocyte # 3.08 X10^3/ul (0.83-4.51); Lymphocyte % 28.8 % (19-41); Mean Corpuscular Hgb 31.8 pg (27.0-32.0); Mean Corpuscular Volume 96.1 fL (81-99); Mean Platelet Vol. 11.9 fl (6.2-12.0); Monocyte# 0.86 X10^3/uL; NRBC Flagged by Analyzer 0 % (0-5); Neutrophil % 59.7 % (47-70); Platelet Count 171 K/mm3 (150-450); RBC Distribution Width CV 13.6 % (11.6-14.6); RBC Distribution Width SD 47.8 fl (35.1-43.9); Red Blood Count 4.66 M/mm3 (4.2-5.4); White Blood Count 10.7 K/mm3 (4.4-11.0)
[2022-05-27 13:04] LABS: ALB/GLOB Ratio 1.2 RATIO (0.9-2.4); AST(SGOT) 9 U/L (15-37); Alanine Aminotransfer ALT/SGPT 25 U/L (13-56); Albumin, Serum 3.7 g/dL (3.2-5.0); Alkaline Phosphatase 84 U/L (45-117); Anion Gap 7 (5-15); BUN 26 mg/dL (7-18); BUN/Creat Ratio 26.7 RATIO (10-20); CRP 7.04 mg/L (0.0-3.0); Calcium,Total 9.6 mg/dL (8.5-10.1); Chloride 105 mmol/L (98-107); Creatinine, Serum 0.98 mg/dL (0.55-1.02); EST Glomerular Filtration Rate 62 mL/min (>60); Est Glom Filt Rate - Afr Amer 75 mL/min (>60); Globulin 3.2 g/dL (2.2-4.2); Glucose 83 mg/dL (74-106); Potassium 3.9 mmol/L (3.5-5.1); Protein, Total 6.9 g/dL (6.4-8.2); Sodium Level 140 mmol/L (136-145)
--- NOTE | 2022-05-27 13:41 | CT_ITS ---
STUDY: CT ABDOMEN AND PELVIS WITH CONTRAST REASON FOR EXAM: Female, 61 years old. Need to have STAT, pt having tender, LUQ pain -- need to have this STAT. pt having tender, LUQ pain RADIATION DOSAGE (If Supplied By Facility): CTDIvol = ( 19.15 ) mGy, DLP = ( 2305.61 ) mGycm TECHNIQUE: Transaxial images were obtained from the dome of the diaphragm to the symphysis pubis with oral contrast. Oral and amp; IV Gastrografin and amp; 100mL Isovue-300 was administered. Sagittal and coronal images were reconstructed. Individualized dose optimization techniques were used for this CT. COMPARISON: Comparison is made with prior examination 11/03/2014. FINDINGS: The visualized lung bases are unremarkable. The visualized portions of the heart are within normal limits. There is decreased attenuation of the liver consistent with steatosis. There are surgical clips in the gallbladder fossa consistent with a prior cholecystectomy. Normal spleen. Normal pancreas. Normal bilateral adrenal glands. Stable concave contour abnormality of the anterior inferior pole of the right kidney. This may represent prior cortical scarring. A similar appearing concave abnormality is seen in the posterior upper pole of the left kidney suggestive of focal area of scarring. There is a 7.4 mm nonobstructive calculus in the lower pole calyx of the left kidney. There is also evidence of a 6 mm calculus in the inferior pole calyx of the left kidney. No evidence of hydronephrosis. There is evidence of prior bariatric surgery. Normal small intestine. Normal colon. The appendix is visualized and appears normal. Normal abdominal aorta. Normal inferior vena cava. Normal retroperitoneum. Normal urinary bladder. There is absence of the uterus consistent with a prior hysterectomy. Calcified phleboliths are seen in the pelvis. Normal abdominal wall. Normal osseous structures. CT/Abdomen/Pelvis WITH Contrast IMPRESSION: Stable appearance of the focal cortical scarring in both kidneys. Nonobstructive calculus in the lower pole calyx of the left kidney. Fatty infiltration of the liver. Status post bariatric surgery. Electronically Signed: Real Jaquez MD at 15:20 EST ,
[2022-05-28 16:34] LABS: EBV Acute VCA IgM < 36.0 U/mL (0.0-35.9); EBV-VCA IgG > 600.0 U/mL (0.0-17.9)
== END | disposition home or self-care (01) ==
PROVIDERS: PCP Internal Medicine; Referring Provider Internal Medicine; Visit Provider Internal Medicine
DX: R10.12 Left upper quadrant pain (principal); R53.83 Other fatigue
CPT/HCPCS: 74177; 80053; 85025; 85652; 86140; 86664; 86665; Q9967; A4216

== ENCOUNTER 2022-05-30 17:14 | Emergency (ER) | payer OTHER, SELFPAY ==
[2022-05-30 17:15] VITALS: BP 159/91; PULSE 77; RESP 14; TEMP 36.8; O2SAT 97; BMI 42.0
[2022-05-30] MEDS: Morphine 4 MG/ML Syringe IM (17:49)
[2022-05-30] MEDS: Ondansetron ODT 4 MG Tablet 8 MG PO (17:49)
--- NOTE | 2022-05-30 17:58 | EDS_ITS ---
HPI History of Present Illness Chief Complaint: Flank Pain Informant: patient Onset/Context/Timing Onset: Weeks (Several) Context: Gradual Onset Timing: Continuous Quality: pain Location: left flank Current Severity: Severe Maximum Severity: Severe Worsened by: after sat down today; movement Relieved by: remaining still Associated Symptoms Associated Symptoms: none Narrative Narrative: Patient had gradual onset of pain in her left side and into her back in a dermatomal distribution, progressively became worse, saw her doctor earlier this week 3 days ago, had blood work and a CT abdomen/pelvis that was unremarkable, and then subsequently had x-rays of the thoracic spine. Today she sat down and had sudden acute worsening of her pain in the same distribution, from her left mid-low back around the side to her left lower quadrant, starting severe even before she hit the cushion. She has the same pain in the same distribution as before it is just severely worse. In the past it was not worse to move but now it is. She denies any bowel or bladder symptoms. No radiation into her legs or arms. No neck or low back pain. No nausea, vomiting, diarrhea, no changes with bowel movements in the recent past, no urinary symptoms or hematuria. [facility] Medical History (Updated 05/30/22 @ 18:[address] Jason Diaz MD) Asthma Hyperlipidemia Home Medications trazodone 50 mg tablet 50 mg PO QHS 07/10/14 [History Last Taken Unknown] albuterol sulfate 2.5 mg/3 mL (0.083 %) solution for nebulization 2.5 mg inhalation Q4H PRN PRN Sob &/Or Wheezing 11/13/17 [History Last Taken Unknown] aspirin 81 mg tablet,delayed release 81 mg PO DAILY@0800 11/13/17 [History Last Taken Unknown] atorvastatin 10 mg tablet 10 mg PO QODAY 11/13/17 [History Last Taken Unknown] budesonide-formoterol HFA 160 mcg-4.5 mcg/actuation aerosol inhaler (Symbicort) 1 puff inhalation BID 11/13/17 [History Last Taken 11/19/17 06:30 1 PUFF] cholecalciferol (vitamin D3) 50 mcg (2,000 unit) capsule (Vitamin D3) 2,000 unit PO DAILY 11/13/17 [History Last Taken Unknown] coenzyme Q10 100 mg-vitamin E 10 unit capsule 1 ea PO QHS 11/13/17 [History Last Taken Unknown] cyclosporine 0.05 % eye drops in a dropperette (Restasis) 1 drp BID 11/13/17 [History Last Taken Unknown] escitalopram oxalate 10 mg tablet 10 mg PO QHS 11/13/17 [History Last Taken Unknown] estradiol 0.01% (0.1 mg/gram) vaginal cream (Estrace) 1 dose vaginal QWEEK 11/13/17 [History Last Taken Unknown] iron, carbonyl 45 mg tablet (Feosol) 45 mg PO QODAY 11/13/17 [History Last Taken Unknown] multivitamin (Multiple Vitamins tablet) 1 ea PO DAILY 11/13/17 [History Last Taken Unknown] omega-3 fatty acids-fish oil 340 mg-1,000 mg capsule (Fish Oil) 1 ea PO DAILY 11/13/17 [History Last Taken Unknown] gabapentin 300 mg capsule 300 mg PO TID #89 caps 05/30/22 [Rx Last Taken Unknown] hydrocodone-acetaminophen 5-325mg 5mg-325mg 1 tab PO Q6H PRN pain 3 days #10 TABLETS 05/30/22 [Rx Last Taken Unknown] Allergy/AdvReac Type Severity Reaction Status Date / Time Latex, Natural Rubber Allergy Rash Verified 05/30/22 17:17 nitrofurantoin Allergy Rash Verified 05/30/22 17:17 [From Macrobid] nitrofurantoin Allergy Rash Verified 05/30/22 17:17 macrocrystalline [From Macrobid] Sulfa (Sulfonamide Allergy Unknown Verified 05/30/22 17:17 Antibiotics) codeine AdvReac Nausea/Vom/ Verified 05/30/22 17:17 Diarrhea Surgical History (Updated 05/30/22 @ 18:[address] Jason Diaz MD) H/O bariatric surgery History of hysterectomy Hx of cholecystectomy Social History Smoking Status: Never smoker ROS ROS ED Constitutional Constitutional ED: Denies chills or fever(s) Eyes Eyes: Denies change in vision or diplopia ENT ENT ED: Denies rhinorrhea or sore throat Cardiovascular Cardiovascular: Denies chest pain or palpitations Respiratory/Chest Respiratory/Chest: Denies cough or dyspnea Gastrointestinal Gastrointestinal: Reports abdominal pain; Denies constipation, diarrhea, melena, nausea or vomiting Genitourinary Genitourinary ED: Denies dysuria or hematuria Musculoskeletal Musculoskeletal: Reports back pain; Denies neck pain Integumentary Denies abscess or rash Neurologic Neurologic: Denies headache(s), paresthesias or weakness Psychiatric Psychiatric: Denies anxiety or suicidal thoughts EXAM Physical Exam Const Vital Signs: 05/30/22 17:15 Temperature 98.2 F Temperature Source Temporal Pulse Rate 77 Respiratory Rate 14 Blood Pressure 159/91 H Blood Pressure Mean 113 Pulse Ox 97 Oxygen Delivery Method Room Air Positive well nourished, well developed and obese Constitutional Narrative: Uncomfortable but no distress General Appearance ED: well developed and NAD Nutritional Appearance: obese HEENT Reports moist mucous membranes normocephalic and atraumatic Eyes PERRL and EOMs intact bilaterally Neck full ROM and supple Resp normal respiratory effort and clear to auscultation bilaterally Cardio regular rate, regular rhythm and no murmurs GI non-distended GI Narrative: Tender in the left flank and lower quadrant superficially, no rash. No deep abdominal tenderness or palpable organomegaly although limited by obesity. Auscultation: normoactive bowel sounds Palpation: soft Back/Spine no CVA tenderness Back/Spine Narrative: Limited range of motion due to pain, she is sitting in a chair, sitting forward and apprehensive with regards to moving. Tender around the left flank and into the back toward but not including the midline. No rash. This is all approximately in the T10 or 11 dermatome. Extremity normal to inspection General Extremety ED: Negative for edema, pulses abnormal or tenderness General Extremity: Negative for edema or pulses abnormal Neuro oriented x3, CN's II-XII intact bilaterally and no sensory deficits noted Sensorium / Orientation: awake and alert Motor Exam: strength 5/5 throughout Skin no rashes or lesions noted and no wounds MDM MDM MDM Narrative Medical decision making narrative: I reviewed the patient's recent labs, CT abdomen/pelvis, and x-rays of the thoracic spine, and I do not think any of that needs to be repeated today based on this. She does not have any midline tenderness to suggest an axial loading injury/compression fracture acutely. Her thoracic films are consistent with degenerative disease and disc space narrowing but nothing acute. Her symptoms are concerning for a lower thoracic radiculopathy. She does not have a rash to suggest zoster. I think she is in need of pain control at this time, we discussed all this and she is in agreement. She was given a dose of morphine, prophylactic Zofran since she was nauseated earlier from the pain, as well as a dose of gabapentin 300 mg orally. She feels much better after analgesics here. She is comfortable with going home with prescription for gabapentin and some [place]. I attempted to discuss with the on-call physician with [facility] but so far I have not received a call back, I will give her a referral to Dr. Ortega with spine as well as advised to follow-up with her doctor since she has been working her up for this. Patient is amenable. Also, she just finished a taper of steroids that she was on for her asthma, and this all started while she was on the steroids, so I do not think prescribing her steroids would be helpful now. Discharge Plan Triage Chief Complaint: Flank Pain ED Provider: Jason Diaz Dx/Rx/DC Orders Clinical Impression: Acute left flank pain, Radiculopathy, thoracic region Instructions: Common Spine and Disk Problems Prescriptions: New gabapentin 300 mg capsule 300 mg PO TID Qty: 89 0RF Rx Instructions: on first day, 1 cap BID hydrocodone-acetaminophen [hydrocodone-acetaminophen] 5-325 mg tablet 1 tab PO Q6H PRN (Reason: pain) 3 Days Qty: 10 0RF No Action trazodone 50 MG tablet 50 mg PO QHS multivitamin [Multiple Vitamins] 1 EACH tablet 1 ea PO DAILY atorvastatin 10 MG tablet 10 mg PO QODAY aspirin 81 MG tablet 81 mg PO DAILY@0800 Label Comments: will stop 5 days prior iron, carbonyl [Feosol] 45 MG capsule 45 mg PO QODAY escitalopram oxalate 10 MG tablet 10 mg PO QHS cyclosporine [Restasis] 1 DROP dropperette 1 drp Each Eye BID omega-3 fatty acids-fish oil [Fish Oil] 1 EACH capsule 1 ea PO DAILY budesonide-formoterol [Symbicort] 1 INHALER inhaler 1 puff inhalation BID cholecalciferol (vitamin D3) [Vitamin D3] 2,000 UNIT capsule 2,000 unit PO DAILY coenzyme [id number] 1 EACH capsule 1 ea PO QHS albuterol sulfate 2.5 MG/3 ML solution for nebulization 2.5 mg inhalation Q4H PRN PRN (Reason: Sob &/Or Wheezing) Rx Instructions: Use q4 hours and PRN for wheezing estradiol [Estrace] 42.5 GM cream 1 dose vaginal QWEEK Label Comments: 3x per week Primary Care Provider: Anneliese Bland Referrals: Anneliese Bland DO [Primary Care Provider] - Juan Ortega DO [Med Staff - Active Staff] - (records specialist) Activity Restrictions/Additional Instructions: Start gabapentin prescription tomorrow 05/31 Disposition Disposition: Home, Self Care
[2022-05-30] MEDS: Gabapentin 300 MG Capsule PO (18:03)
[2022-05-30 18:26] VITALS: RESP 16
== END 2022-05-30 18:35 | disposition home or self-care (01) ==
PROVIDERS: Emergency Provider Emergency Medicine; PCP Internal Medicine; Visit Provider Emergency Medicine
DX: R10.9 Unspecified abdominal pain (principal); M54.14 Radiculopathy, thoracic region; E66.9 Obesity, unspecified
CPT/HCPCS: 96372; 99282

== ENCOUNTER 2022-07-18 15:30 | Outpatient (RCR) | payer OTHER, SELFPAY ==
--- NOTE | 2022-06-07 14:19 | HP.PTEVAL_ITS ---
Patient's Visit Information ROBEL RAMOS is a 61 year old F referred to Physical Therapy by Dr. Anneliese Bland DO with a diagnosis of THORACIC RADICULOPATHY. Date of Evaluation: 06/07/22 Physical Therapist: Sriram Cotton, PT, Cert MDT, OCS - Visit Plan Frequency: 2x /Week Duration: 4 Weeks Plan: PT INTERVETIONS THORACIC MOBILITY /ROM, POSTURAL EX'S MTHORACIC STRENGTHENING AND MODALTIES FOR PAIN PRN - Subjective This 61 y/o female presents to physical therapy with thoracic pain .Patient initially had upper abdominal pain . Patient had multiple CATSCAN abdominal region and x-rays thoracic spine DDD . Seen DR recommended PT. Patient had severe pain left thoracic spine left upper quadrant abdominal thus went ER ,prescribed gabapentin and oxytocin . Dr called patient recommended PT and DR Valera radiologic electronic specialist. Patient located left thoracic region. Patient pain was insidious onset Aggravating factors non specific ,laying on side. Alleviating factors MEDS rest.Coughing/sneezing-. Bowel/bladder-. No abnormal night pain. Patient pain affects sleeping. Patient pain affects QOL and function. Goals abolish pain PRECAUTION ALLERGIC LATEX. SOCAIL : . 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 PALPTION: tender thoracic paraspinals. BUE : AROM WFL. MMT: grossly 4/5 BUE shoulders 4-/5 ,BLE quads/hams 4/5 ,hip flexion 4-/5 ankle. THORACIC ROM: flexion min loss ,extension mod loss pain ER ,rotation min loss - Balance/Special Test Scores Oswestry Low Back Score: 26 - Goals Goal 1:: I with HEP thoracic spine Goal Time Frame: 4-6 Weeks Goal 2:: Patient improve thoracic ROM for function of recovery for sitting activities Goal Time Frame: 4-6 Weeks Goal 3:: Patient to demonstrate 50% improvement with improved function and less pain Goal Time Frame: 4-6 Weeks Goal 4:: Patient to improve posture for ADL's 80% Goal Time Frame: 4-6 Weeks Goal 5:: Patient back oswestry score by 5 points to improve QOL - Rehabilitation Potential Physical Therapy Diagnosis: This patient has thoracic pain radiating to eft side with pain with positioning and motion testing affects ADLS and housework tasks thus benefit from skilled PT Rehabilitation Potential: Good - Anticipated Interventions Patient/Client Instruction: Educate patient on: Condition, Plan of Care For the Purpose of:: To decrease pain, To increase ROM, To improve muscle performance and motor function, To improve ability to perform ADL's, To increase tolerance to activity/condition/position, To improve ability of physical actions for home/community/work/leisure, To improve health of tissue, To decrease soft tissue restriction, To increase flexibility/ROM, To reduce risk of recurrence Therapeutic Exercise to Include: Strength training, Postural training, Flexibilty training, Active ROM, Dynamic Lumbar Stabilization, Scapular Strength/Stabilization Comment: THORACIC For the Purpose of:: To decrease pain, To increase ROM, To improve muscle performance and motor function, To increase tolerance to activity/condition/position, To improve ability of physical actions for home/community/work/leisure, To improve health of tissue, To decrease soft tissue restriction, To increase flexibility/ROM Thank you for the opportunity to evaluate your patient. For Medicare and Medicare HMO plans, please review the plan of care and approve it. It will need to be FAXED BACK to us at [phone] for Medicare purposes. For Medicare only, by signing this I certify the plan of care. Please let me know if there are questions or concerns regarding this plan of care. Physician Signature: Date:
--- NOTE | 2022-07-18 17:00 | HP.PTDCSUM_ITS ---
It has been my pleasure to treat ROBEL RAMOS referred by Dr. Anneliese Bland DO, with the diagnosis of THORACIC RADICULOPATHY for a total of 12 visit(s). Discharge Date: Please see the following information for a summary of their discharge status. Subjective: Pain is consistent with activity worse with left Left Back Pain Intensity (Out of 10): 3 % Improvement: 10 Objective/Function: POSTURE: MILD THORACIC KYPHOSIS. BEU: WFL. MMT: BUE GROSSLY 4/5 EXCEPT SHOULDERS 4-/5. THORACIC ROM: flexion mod loss /extension mod loss pain ,rotation min loss pain Goal 1:: I with HEP thoracic spine Goal Progress: Progressing Goal 2:: Patient improve thoracic ROM for function of recovery for sitting activities Goal Progress: Progressing Goal 3:: Patient to demonstrate 50% improvement with improved function and less pain Goal Progress: Not Progressing Goal 4:: Patient to improve posture for ADL's 80% Goal Progress: Not Progressing Goal 5:: Patient back oswestry score by 5 points to improve QOL Plan: RECOMMEND MRI. CONT WITH POC 2XWK. PT INTERVETIONS THORACIC MOBILITY EXTENSION, POSTURAL EX'S MTHORACIC STRENGTHENING AND MODALTIES FOR PAIN PRN If there are questions or concerns regarding this patient's physical therapy, haven will feel free to call me at [phone]. Thank you for the referral of this patient. Sincerely, Sriram Cotton, PT, Cert MDT, OCS Balance/Gait/Functional tests - Balance/Special Test Scores Oswestry Low Back Score: 25
== END 2022-07-18 19:00 | disposition home or self-care (01) ==
LOC: PT 15:30
PROVIDERS: PCP Internal Medicine; Referring Provider Orthopaedic Surgery; Visit Provider Internal Medicine
DX: M48.061 Spinal stenosis, lumbar region without neurogenic claudication (principal); M47.26 Other spondylosis with radiculopathy, lumbar region; M51.36 Other intervertebral disc degeneration, lumbar region
CPT/HCPCS: 97110; 97140; 97162; 97530

== ENCOUNTER → 2022-08-11 | Outpatient (CLI) | payer OTHER, SELFPAY ==
--- NOTE | 2022-08-11 07:38 | MRI_ITS ---
EXAM: MR THORACIC SPINE WITHOUT INTRAVENOUS CONTRAST CLINICAL INDICATION: SPONDYLOSIS, THORACIC PAIN BAND TYPE PAIN AROUND LOWER RIBS TECHNIQUE: Multiplanar and multisequence MR images of the thoracic spine without intravenous contrast. This report was created using [employer] report generation technology. COMPARISON: XR 05.29.22 FINDINGS: VERTEBRAE: There is endplate spondylosis of the vertebral body. No fracture. Normal alignment. There is preservation of the normal thoracic kyphosis. No scoliosis. DISCS/SPINAL CANAL/NEURAL FORAMINA: Unremarkable. Normal disc height and morphology. Normal spinal canal and neuroforamina. SPINAL CORD: Unremarkable. Normal in signal and morphology. Normal conus medullaris. SOFT TISSUES: Unremarkable. MRI/Spine Thoracic (Routine) IMPRESSION: There is endplate spondylosis of the vertebral body. Electronically Signed: Kwabena Kessler MD at 16:35 EST ,
--- NOTE | 2022-08-11 07:38 | MRI_ITS ---
STUDY: MR Spine Lumbar W/O Contrast 08/11/2022 4:37 PM REASON FOR EXAM: Female, 61 years old. Back pain STENOSIS, SPONDYLOSIS TECHNIQUE: MR Spine Lumbar W/O Contrast Standardized fat and water weighted pulse sequences were obtained. COMPARISON: Nov 11 2011 2:14pm FINDINGS: T12-L1: Loss of intervertebral disc height. There is endplate spondylosis of the vertebral body. Normal central canal and intervertebral neuroforamina. There is bilateral facet arthropathy. Normal lumbar lordosis. There is no substantial scoliosis. Normal conus medullaris that terminates at the L1. L1-2: Loss of intervertebral disc height. There is endplate spondylosis of the vertebral body. Normal central canal and intervertebral neuroforamina. There is bilateral facet arthropathy. L2-3: Normal endplates. Normal disc height, hydration and morphology. Normal bilateral facet joints. Normal central canal and bilateral lateral recesses. Normal bilateral intervertebral neural foramina. L3-4: Normal endplates. Normal disc height, hydration and morphology. There is bilateral facet arthropathy. Normal central canal and bilateral lateral recesses. Normal bilateral intervertebral neural foramina. L4-5: Normal endplates. Normal disc height and morphology. Normal central canal and intervertebral neuroforamina.There is bilateral facet arthropathy. L5-S1: Normal endplates. Normal disc height and morphology. Normal central canal and intervertebral neuroforamina.There is bilateral facet arthropathy. Normal visualized sacral ala. Normal visualized paraspinous soft tissue structures. MRI/Spine Lumbar (Routine) IMPRESSION: Multilevel degenerative changes, as described above. Electronically Signed: Kwabena Kessler MD at 16:42 EST ,
== END | disposition home or self-care (01) ==
LOC: MRI 07:32
PROVIDERS: PCP Internal Medicine; Visit Provider Orthopaedic Surgery
DX: M47.814 Spondylosis without myelopathy or radiculopathy, thoracic region (principal); M51.34 Other intervertebral disc degeneration, thoracic region; M48.061 Spinal stenosis, lumbar region without neurogenic claudication; M51.36 Other intervertebral disc degeneration, lumbar region
CPT/HCPCS: 72146; 72148

== ENCOUNTER → 2022-09-02 | Outpatient (CLI) | payer OTHER, SELFPAY ==
--- NOTE | 2022-09-02 14:29 | NEURO_ITS ---
NCS and/or EMG Patient Report Ordering Doctor: Juan Ortega DATE OF SERVICE: 09/02/22 Indication: Bilateral hand numbness (digits 2-4) for the last 6 months. History of prior cervical radiculopathy affecting the left upper extremity. Evaluate for peripheral nerve injury. Findings: Nerve conduction studies were performed in the right and left upper extremities. The right median motor study recording the abductor pollicis brevis showed a normal amplitude, borderline distal latency and normal conduction velocity. The right ulnar motor study recording the abductor digiti minimi showed a normal amplitude, normal distal latency and normal conduction velocity. No conduction block or focal slowing was present across the elbow. The right median sensory response recording digit two showed a relatively reduced amplitude, borderline latency and slowed conduction velocity. The right ulnar sensory response recording digit five showed a normal amplitude, latency and conduction velocity. The right radial sensory response recording over the extensor snuff box showed a normal amplitude, latency and conduction velocity. The left median motor study recording the abductor pollicis brevis showed a normal amplitude, borderline distal latency and normal conduction velocity. The left ulnar motor study recording the abductor digiti minimi showed a normal amplitude, normal distal latency and normal conduction velocity. No conduction block or focal slowing was present across the elbow. The left median sensory response recording digit two showed a relatively reduced amplitude, prolonged latency and markedly slowed conduction velocity. The left ulnar sensory response recording digit five showed a normal amplitude, latency and conduction velocity. The left radial sensory response recording over the extensor snuff box showed a normal amplitude, latency and conduction velocity. Right median-ulnar lumbrical / interosseous motor latencies showed a prolonged median latency compared to the ulnar. Needle EMG of the right upper extremity muscles was performed. No denervation was seen in any muscle. All motor unit morphology, activation and recruitment patterns were normal. Needle EMG of the left abductor pollicis brevis was performed. No denervation was seen. Motor unit morphology was normal, but recr uitment patterns were slightly reduced. Impression: This is an abnormal study. There is electrophysiologic evidence of median neuropathy across the wrist in both upper extremities. These findings are consistent with the clinical diagnosis of carpal tunnel syndrome. The very subtle motor unit changes seen in the right triceps is of unclear significance, but may be related to the patient's remote history of cervical radiculopathy. Shaw Parker D.O. Multi Select Codes Neurology Neurology Interp Codes: 41994-30 [facility] [place] tst done w/nerv tst candelario (interp) (59), 92437-83 [facility] [place] test done w/n test comp (interp) and 63302-17 Nrv cndj test 11-12 studies (interp)
== END | disposition home or self-care (01) ==
PROVIDERS: PCP Internal Medicine; Referring Provider Orthopaedic Surgery; Visit Provider Orthopaedic Surgery
DX: M47.26 Other spondylosis with radiculopathy, lumbar region (principal); R20.2 Paresthesia of skin
CPT/HCPCS: 95885; 95886; 95912

== ENCOUNTER → 2022-10-08 | Outpatient (CLI) | payer OTHER, SELFPAY ==
--- NOTE | 2022-10-08 10:34 | EKG12_ITS ---
Test Reason : PREOP Blood Pressure : / mmHG Vent. Rate : 071 BPM Atrial Rate : 071 BPM P-R Int : 142 ms QRS Dur : 082 ms QT Int : 404 ms P-R-T Axes : -18 009 012 degrees QTc Int : 439 ms Normal sinus rhythm Normal ECG Confirmed by TAMARA FREY, LEWIS ([id number]), digital editor IBIS ANDREA ([id number]) on 10/08/2022 12:54:00 PM Referred By: Juan Ortega Confirmed By:LEWIS MCDONALD MD
[2022-10-08 11:22] LABS: Absolute Lymphocyte Count 1.12 X10^3/uL (0.83-4.51); Absolute Neutrophil Count 2.8 X10^3/uL (2.0-7.7); Basophil# 0.04 X10^3/uL; Basophil% 0.9 % (0-1); Eosinophil# 0.27 X10^3/uL; Eosinophils% 5.8 % (0-5); Hematocrit 45.2 % (37-47); Hemoglobin 14.9 g/dL (12.0-15.0); Lymphocyte # 1.12 X10^3/ul (0.83-4.51); Lymphocyte % 23.9 % (19-41); Mean Corpuscular Hgb 31.8 pg (27.0-32.0); Mean Corpuscular Volume 96.6 fL (81-99); Mean Platelet Vol. 11.7 fl (6.2-12.0); Monocyte# 0.42 X10^3/uL; NRBC Flagged by Analyzer 0 % (0-5); Neutrophil # 2.82 X10^3/uL (2.7-7.7); Neutrophil % 60.2 % (47-70); Platelet Count 206 K/mm3 (150-450); RBC Distribution Width CV 12.3 % (11.6-14.6); RBC Distribution Width SD 42.5 fl (35.1-43.9); Red Blood Count 4.68 M/mm3 (4.2-5.4); White Blood Count 4.7 K/mm3 (4.4-11.0)
[2022-10-08 11:47] LABS: Anion Gap 7 (5-15); BUN 23 mg/dL (7-18); BUN/Creat Ratio 24.1 RATIO (10-20); Calcium,Total 9.4 mg/dL (8.5-10.1); Chloride 108 mmol/L (98-107); Creatinine, Serum 0.96 mg/dL (0.55-1.02); EST Glomerular Filtration Rate 63 mL/min (>60); Est Glom Filt Rate - Afr Amer 77 mL/min (>60); Glucose 100 mg/dL (74-106); Potassium 4.1 mmol/L (3.5-5.1); Sodium Level 140 mmol/L (136-145)
== END | disposition home or self-care (01) ==
LOC: PSN 10:28
PROVIDERS: PCP Internal Medicine; Referring Provider Orthopaedic Surgery; Visit Provider Physician Assistant
DX: Z01.810 Encounter for preprocedural cardiovascular examination (principal)
CPT/HCPCS: 36415; 80048; 85025; 93005

== ENCOUNTER → 2023-08-21 | Outpatient (CLI) | payer BC, SELFPAY ==
--- NOTE | 2023-08-21 07:55 | US_ITS ---
STUDY: ABDOMINAL ULTRASOUND - RIGHT UPPER QUADRANT; ELASTOGRAPHY REASON FOR VISIT: Female, 62 years old. Fatty infiltration of the liver. TECHNIQUE: Ultrasound evaluation of the right upper quadrant was performed with real-time and static sherman-scale imaging. Point quantification shear wave elastography was performed ([employer]). TECHNICAL QUALITY: Limited. Examination limited due to a combination of factors including obesity and bowel gas. COMPARISON: Comparison is made with prior study dated March 15, 2022. FINDINGS: Liver: The liver measures 15.6 cm. There is increased echogenicity consistent with fatty infiltration. The bile ducts are within normal limits. There is hepatic color flow. The direction of portal flow is hepatopetal. There is no demonstrated mass lesion. Median liver stiffness measured 4.1 kPa. Gallbladder: The patient is status post cholecystectomy. Common Bile Duct (C.B.D.): The common bile duct measures 4.4 mm. Pancreas: There is normal echogenicity of the visualized pancreas. There is no demonstrated pancreatic mass or cyst. Right Kidney: Normal size of the right kidney. The right kidney measures 10.2 cm x 6.5 cm x 4.5 cm. Normal renal cortex. The right cortex measures 1.5 cm. There is no demonstrated renal mass or cyst. There is no right hydronephrosis. US/ABD Limited w/ Elastography IMPRESSION: 1. Liver stiffness measures 4.1 kPa compatible with FO (Normal) Metavir score. Electronically Signed: Real Jaquez MD at 15:09 EST ,
--- NOTE | 2023-08-21 07:55 | CDU_ITS ---
Reason For Study: Bilateral Carotid Stenosis Rt. Velocities/BP Lt. Velocities/BP Prox CCA 92.4/26.7 cm/sec. Prox CCA 107.6/36.3 cm/sec. Mid CCA 101.6/26.7 cm/sec. Mid CCA 89.3/27.2 cm/sec. Dist CCA 110.7/37.6 cm/sec. Dist CCA 94.2/34.0 cm/sec. Prox ICA 112.5/32.1 cm/sec. Prox ICA 58.1/22.3 cm/sec. Mid ICA 116.2/24.8 cm/sec. Mid ICA 52.4/23.6 cm/sec. Dist ICA 63.9/22.3 cm/sec. Dist ICA 91.8/44.9 cm/sec. Rt. ICA/CCA = 1.1. Lt. ICA/CCA = 1.0. Prox ECA 70.0/17.0 cm/sec. Prox ECA 70.0/17.0 cm/sec. Rt. Vert. 53.4/19.3 cm/sec. Lt. Vert. 46.2/16.0 cm/sec. Right Extracranial There is homogeneous, smooth atherosclerotic plaque noted in the right common carotid artery. There is heterogeneous, irregular atherosclerotic plaque noted in the right internal carotid artery. There is intimal thickening but no significant atherosclerotic plaque noted in the right external carotid artery. Antegrade flow is noted in the right vertebral artery. Left Extracranial There is homogeneous, smooth atherosclerotic plaque noted in the left common carotid artery. There is heterogeneous, irregular atherosclerotic plaque noted in the left internal carotid artery. There is intimal thickening but no significant atherosclerotic plaque noted in the left external carotid artery. Antegrade flow is noted in the left vertebral artery. Procedure Carotid Duplex [id number]. This is a Carotid Duplex examination using B-mode, color flow and specral Doppler. The exam was diagnostic. Exam performed in department. VL/Carotid Duplex Ultrasound Interpretation Summary Mild (<50%) stenosis right extracranial internal carotid. Mild (<50%) stenosis left extracranial internal carotid. Patent and antegrade vertebrals bilaterally. Ordering Physician: Anneliese Bland Referring Physician: Anneliese Bland Performed By: Adriel Luque RVT
== END | disposition home or self-care (01) ==
PROVIDERS: PCP Internal Medicine; Referring Provider Internal Medicine; Visit Provider Internal Medicine
DX: K76.0 Fatty (change of) liver, not elsewhere classified (principal); I65.23 Occlusion and stenosis of bilateral carotid arteries
CPT/HCPCS: 76705; 76981; 93880

== ENCOUNTER → 2023-09-11 | Outpatient (CLI) | payer BC, SELFPAY ==
--- NOTE | 2023-09-11 14:00 | BD_ITS ---
STUDY: DUAL ENERGY X-RAY ABSORPTIOMETRY / DXA REASON FOR EXAM: Female, 62 years old. [id number] TECHNIQUE: Bone Mineral Density (BMD) measurements of lumbar spine and bilateral hips were obtained. COMPARISON: Comparison is made with prior study dated July 04, 2020. FINDINGS: Lumbar Spine (L1-L4): g/cm2 (0.837) / T-score (-2.2) / Z-score (-0.6) Findings are suggestive of osteopenia with a high fracture risk. Left Femur Total: g/cm2 (0.877) / T-score (-0.5) / Z-score (0.5) Left Femoral Neck: g/cm2 (0.733) / T-score (-1.0) / Z-score (0.3) Right Femur Total: g/cm2 (0.845) / T-score (-0.8) / Z-score (0.3) Right Femoral Neck: g/cm2 (0.688) / T-score (1.5) / Z-score (-0.1) The T-Scores on the most recent prior examination were: Lumbar Spine (L1-L4): There has been worsening of bone density since the previous examination. Left Femur Total: which represents a worsening of 6.7%. Right Femur Total: which represents a worsening of 5.8%. BD/Dexa Bone Density Study IMPRESSION: The patient is considered osteopenic as outlined below according to World Petr Organization (WHO) criteria with a high fracture risk. There has been worsening of bone density since the previous examination. Reference Information: The T-score is the number of standard deviations above or below the standard which is normal for young adults at their peak bone mineral density. The World Health Organization (WHO) interprets the T-scores as follows: Above -1 Normal bone density Between -1 and -2.5 Osteopenia Equal to / or below -2.5 Osteoporosis As a practical clinical guideline, osteopenia may be graded as follows: Mild -1 through -1.5 Moderate -1.6 through -2.0 Severe -2.1 through -2.4 The Z-score is the number of standard deviations above or below age-matched controls. A Z-score of less than -1.5 would be considered abnormal. References: 1. NIH Osteoporosis and Related Bone Diseases www osteo.org 2. International Society for Clinical Densitometry www iscd.org 3. National Osteoporosis Foundation www nof.org Electronically Signed: Real Jaquez MD at 15:36 EST ,
--- NOTE | 2023-09-11 15:45 | BI_ITS ---
MAMMOGRAPHY - BILATERAL SCREENING REASON FOR EXAM: Female, 62 years old. Routine annual screening examination. PERTINENT HISTORY: Aunt with breast cancer. TECHNIQUE: Digital bilateral breast amish (3D mammographic acquisition) in the CC and MLO projections. 2-D mediolateral oblique (MLO) and craniocaudad (CC) views of both breasts were obtained. CAD: Full Field Digital Mammography with Computer Added Detection was performed. COMPARISON: Comparison is made with prior study dated March 15, 2022 and September 30, 2019. FINDINGS: Breast Composition: There are scattered areas of fibroglandular density. There are no dominant masses or suspicious calcifications. Stable asymmetry of breast tissue where more breast tissue is seen in the upper-outer aspect of the left breast as compared to the right side. Stable 5 mm well-defined nodule in the upper lateral aspect of the right breast. This is just with a small lymph node. No other significant abnormalities are identified. There has been no significant change since the prior study. BI/SCRN MAMM (CAD)W/AMISH BILAT IMPRESSION: Stable bilateral screening mammogram. Yearly follow-up mammogram recommended. (A) ASSESSMENT CATEGORY: BIRADS Category 2: Benign. A letter regarding these results will be sent to the patient by the facility within 30 days. Approximately 10% of breast cancers are not detected by mammography. A normal mammogram should not delay biopsy of a clinically suspicious abnormality. [id number] Electronically Signed: Real Jaquez MD at 8:24 EST ,
== END | disposition home or self-care (01) ==
PROVIDERS: PCP Internal Medicine; Referring Provider Internal Medicine; Visit Provider Internal Medicine
DX: Z12.31 Encounter for screening mammogram for malignant neoplasm of breast (principal); Z78.0 Asymptomatic menopausal state
CPT/HCPCS: 77063; 77067; 77080

== ENCOUNTER → 2024-09-14 | Outpatient (CLI) | payer OTHER, SELFPAY ==
--- NOTE | 2024-09-14 08:22 | US_ITS ---
PROCEDURE: ABDOMEN LIMITED REASON FOR EXAM: Fatty infiltration of the liver. COMPARISON: Comparison is made with prior study dated August 21, 2023. FINDINGS: Liver: Diffusely echogenic suggesting fatty infiltration. Gallbladder: Surgically absent. Common bile duct: Normal measuring it measures 4 mm.. Pancreas: Obscured by bowel gas. Visualized portions of the right kidney are unremarkable. No right upper quadrant ascites. US/Abdomen Limited IMPRESSION: Fatty infiltration of the liver. Reading Location: [id number]
--- NOTE | 2024-09-14 08:22 | CDU_ITS ---
Reason For Study Reason For Study: Carotid Stenosis Rt. Velocities/BP Lt. Velocities/BP Prox CCA 74.0/23.0 cm/sec. Prox CCA 87.9/24.1 cm/sec. Mid CCA 81.7/26.7 cm/sec. Mid CCA 78.1/24.1 cm/sec. Dist CCA 67.4/26.7 cm/sec. Dist CCA 80.6/31.4 cm/sec. Prox ICA 72.0/17.9 cm/sec. Prox ICA 56.0/17.9 cm/sec. Mid ICA 62.1/26.5 cm/sec. Mid ICA 86.7/33.9 cm/sec. Dist ICA 92.4/41.3 cm/sec. Dist ICA 80.6/38.8 cm/sec. Rt. ICA/CCA = 1.1. Lt. ICA/CCA = 1.1. Prox ECA 69.5/10.6 cm/sec. Prox ECA 84.2/17.9 cm/sec. Rt. Vert. 39.3/10.0 cm/sec. Lt. Vert. 48.7/22.3 cm/sec. Right Extracranial There is intimal thickening but no significant atherosclerotic plaque noted in the right common carotid artery. There is intimal thickening but no significant atherosclerotic plaque noted in the right internal carotid artery. There is intimal thickening but no significant atherosclerotic plaque noted in the right external carotid artery. Antegrade flow is noted in the right vertebral artery. Left Extracranial There is intimal thickening but no significant atherosclerotic plaque noted in the left common carotid artery. There is intimal thickening but no significant atherosclerotic plaque noted in the left internal carotid artery. There is intimal thickening but no significant atherosclerotic plaque noted in the left external carotid artery. Antegrade flow is noted in the left vertebral artery. Procedure Carotid Duplex [id number]. This is a Carotid Duplex examination using B-mode, color flow and specral Doppler. Exam performed in department. VL/Carotid Duplex Ultrasound Interpretation Summary Normal right extracranial internal carotid. Normal left extracranial internal carotid. Patent and antegrade vertebrals bilaterally. Ordering Physician: Anneliese Bland Referring Physician: Anneliese Bland Performed By: Arcelia Ohara RVT and Student
--- NOTE | 2024-09-14 09:21 | BI_ITS ---
PROCEDURE: SCRN MAMM (CAD)W/AMISH BILAT REASON FOR EXAM: F, Age 63 y/o, presents for annual screening mammogram. Family history of breast cancer in a maternal aunt in her 80s and a maternal cousin in her 60s. TECHNIQUE: Bilateral screening digital breast tomosynthesis with 2D and 3D images. Computer aided detection. COMPARISON: 09/11/2023, 03/15/2022 FINDINGS: There are scattered areas of fibroglandular density. No suspicious masses, areas of developing architectural distortion, or suspicious calcifications. BI/SCRN MAMM (CAD)W/AMISH BILAT IMPRESSION: There is no mammographic evidence of malignancy in either breast. BI-RADS 1: NEGATIVE. RECOMMEND ANNUAL MAMMOGRAPHIC SCREENING. Follow-up code: Routine Follow-up The patient will be notified of the results by letter. Reading Location: [id number]
== END | disposition home or self-care (01) ==
PROVIDERS: PCP Internal Medicine; Referring Provider Internal Medicine; Visit Provider Internal Medicine
DX: Z12.31 Encounter for screening mammogram for malignant neoplasm of breast (principal); I65.23 Occlusion and stenosis of bilateral carotid arteries
CPT/HCPCS: 76705; 77063; 77067; 93880

== ENCOUNTER 2024-11-16 13:50 | Emergency (ER) | payer OTHER, SELFPAY ==
[2024-11-16] VITALS (14 sets, daily range): BP systolic 125–179; BP diastolic 77–129; PULSE 69–88; RESP 14–18; TEMP 37; O2SAT 98–100; BMI 32.4
--- NOTE | 2024-11-16 14:06 | CT_ITS ---
PROCEDURE: ABDOMEN/PELVIS WITHOUT CONT (CTABDPEL), 11/16/2024 REASON FOR EXAM: KIDNEY STONE TECHNIQUE: CT abdomen and pelvis was performed without IV contrast. Multiplanar reformats were generated. RADIATION DOSE SUMMARY: CTDlvol: 18.72 mGy DLP: 916.73 mGycm One or more dose reduction techniques were used (e.g., Automated exposure control, adjustment of the mA and/or kV according to patient size, use of iterative reconstruction technique). COMPARISON: 09/14/2024 and prior FINDINGS: Note that evaluation of the abdominopelvic viscera, vasculature, and remaining soft tissues is limited in the absence of IV contrast. Lung bases: Minimal atelectasis/scarring. At least trace aortic annular calcification. Liver: Tiny hypodensities too small to characterize, likely cysts or hemangiomas in the absence of known malignancy. Spleen: Unremarkable. Gallbladder: Cholecystectomy. Pancreas: Unremarkable. Adrenals: Unremarkable. Kidneys: Slight asymmetric fullness of the LEFT renal pelvis without zachary caliectasis/hydronephrosis. 6 x 5 x 7 mm calculus in the proximal LEFT ureter just beyond the UPJ. Similar bulky parenchymal calculus of the LEFT lower pole. Punctate nonobstructing intrarenal calculi at the RIGHT lower pole. Similar multifocal cortical scarring, greatest at the LEFT upper pole and RIGHT mid to lower poles. 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 Numerous presumed pelvic phleboliths, grossly similar to prior. Bowel: Sleeve gastrectomy.. Normal caliber appendix. Lymph nodes: Unremarkable. Vasculature: Unremarkable. Peritoneum: Unremarkable. Bladder: Underdistended and suboptimally evaluated, grossly unremarkable. Reproductive Organs: Hysterectomy. Body Wall: Tiny fat containing umbilical hernia. Bones: Mild spondylosis. Trace thoracolumbar levoscoliosis may be positional.. CT/Abdomen/Pelvis without Cont IMPRESSION: 1. 6 x 5 x 7 mm calculus in the proximal LEFT ureter just beyond the UPJ with m ild fullness of the upstream renal pelvis, however without zachary hydronephrosis. Additional nonobstructing intrarenal/parenchymal calculi bilaterally. 2. Additional description as above. Reading Location: [id number]
[2024-11-16] MEDS: Ketorolac 15 MG/ML Vial IV (14:17)
[2024-11-16] MEDS: Metoclopramide 10 MG/2 ML Vial 5 MG IV (14:17)
[2024-11-16] MEDS: Morphine 4 MG/ML Syringe IV ×2 (14:18→16:08)
[2024-11-16] MEDS: 0.9% Normal Saline (1000mL) 1,000 ML 250 ML IV ×3 (14:19→23:28)
[2024-11-16 14:31] LABS: Absolute Lymphocyte Count 1.43 X10^3/uL (0.83-4.51); Basophil# 0.04 X10^3/uL; Basophil% 0.4 % (0-1); Eosinophil# 0.23 X10^3/uL; Eosinophils% 2.5 % (0-5); Hematocrit 42.4 % (37-47); Hemoglobin 14.4 g/dL (12.0-15.0); Lymphocyte # 1.43 X10^3/ul (0.83-4.51); Lymphocyte % 15.4 % (19-41); Mean Corpuscular Hgb 31.6 pg (27.0-32.0); Mean Corpuscular Volume 93.2 fL (81-99); Monocyte% 6.4 % (0-10); NRBC Flagged by Analyzer 0 % (0-5); Neutrophil # 6.97 X10^3/uL (2.7-7.7); Neutrophil % 74.9 % (47-70); Platelet Count 214 K/mm3 (150-450); RBC Distribution Width CV 12.4 % (11.6-14.6); RBC Distribution Width SD 42.5 fl (35.1-43.9); Red Blood Count 4.55 M/mm3 (4.2-5.4); White Blood Count 9.3 K/mm3 (4.4-11.0)
[2024-11-16 14:47] LABS: Anion Gap 13 (5-15); BUN 24 mg/dL (4-19); BUN/Creat Ratio 19.1 RATIO (10-20); Carbon Dioxide 20.1 mmol/L (21.0-32.0); Chloride 104 mmol/L (98-108); Creatinine, Serum 1.24 mg/dL (0.70-1.20); EST Glomerular Filtration Rate 49 (>60); Estimated Creatinine Clearance 47.39 ml/min (50-250); Glucose 103 mg/dL (70-99); Sodium Level 137 mmol/L (133-145)
[2024-11-16 15:10] LABS: Bacteria 0 SEEN /hpf (None Seen); Mucous, Urine 0 SEEN /hpf (<or=2+)
[2024-11-16 15:13] LABS: Color, Urine Yellow (Yellow); Glucose, Dipstick Normal (Normal); Ketone-Dipstick 5 mg/dl (Negative); Leukocyte Esterase-Dipstick 25 /ul (Negative); Nitrite-Dipstick Negative (Negative); Occult Blood-Urine 250 /ul (Negative); Protein-Dipstick 30 mg/dl (Negative); Specific Gravity, Urine 1.025 (1.002-1.030); Urine Bilirubin Dipstick Negative (Negative); Urine Clarity Cloudy (Clear); Urine Urobilinogen Normal (Normal)
--- NOTE | 2024-11-16 15:28 | EDS_ITS ---
HPI <Dr. Luis Miguel Reyes DO - Last Filed: 11/17/24 08:48> History of Present Illness Chief Complaint: Flank Pain Informant: patient and spouse/S.O. Narrative Narrative: Sudden left flank pain an hour prior to arrival radiating to her left side. Nausea due to pain. No vomiting. No recent changes in urine. No hematuria no dysuria. History of multiple kidney stones in the past however last kidney stone 10 years ago requiring intervention. Antibiotic allergies to Macrobid and sulfa as. Allergy to codeine. Has tolerated morphine in the past. Denies history of gastric ulcers or kidney injury. Prior similar symptoms: Yes [facility] <Dr. Luis Miguel Reyes DO - Last Filed: 11/17/24 08:48> [facility] Medical History Asthma Hyperlipidemia Home Medications ?Medication ?Instructions ?Recorded ?Last Taken ?Type trazodone 50 mg tablet 50 mg PO QHS 07/10/14 Unknow n History albuterol sulfate 2.5 mg/3 mL 2.[address] N PRN Sob 11/13/17 Unknown History (0.083 %) solution for nebulization &/Or Wheezing aspirin 81 mg tablet,delayed 81 mg PO DAILY@0800 11/13 Unknown History release atorvastatin 10 mg tablet 10 mg PO QODAY 11/13/17 Unkn own History budesonide-formoterol HFA 160 1 puff inhalation BID 11/19/17 06:30 History mcg-4.5 mcg/actuation aerosol 1 PUFF inhaler (Symbicort) cholecalciferol (vitamin D3) 50 2,000 unit PO DAILY Unknown History mcg (2,000 unit) capsule (Vitamin D3) coenzyme Q10 100 mg-vitamin E 10 1 ea PO QHS 11/13/17 Unknown History unit capsule cyclosporine 0.05 % eye drops in a 1 drp BID 11/13/17 Unknown History dropperette (Restasis) escitalopram oxalate 10 mg tablet 10 mg PO QHS 8 Unknown History estradiol 0.01% (0.1 mg/gram) 1 dose vaginal QWEEK Unknown History vaginal cream (Estrace) iron, carbonyl 45 mg tablet 45 mg PO QODAY 11/13/17 Un known History (Feosol) multivitamin (Multiple Vitamins 1 ea PO DAILY 11/13/17 Unknown History tablet) omega-3 fatty acids-fish oil 340 1 ea PO DAILY 8 Unknown History mg-1,000 mg capsule (Fish Oil) gabapentin 300 mg capsule 300 mg PO TID #89 caps 05/30 Unknown Rx hydrocodone-acetaminophen 5-325mg 1 tab PO Q6H PRN ladonna n 3 days #10 05/30/22 Unknown Rx 5mg-325mg TABLETS Allergy/AdvReac Type Severity Reaction Status Date / Time Latex, Natural Rubber Allergy Rash Verified 11/16/24 13:51 nitrofurantoin (From Allergy Rash Verified 11/16/24 13:51 Macrobid) nitrofurantoin Allergy Rash Verified 11/16/24 13:51 macrocrystalline (From Macrobid) Sulfa (Sulfonamide Allergy Unknown Verified 11/16/24 13:51 Antibiotics)
--- NOTE | 2024-11-16 15:28 | EX.ED.DYSGE1 ---
HPI <Dr. Luis Miguel Reyes DO - Last Filed: 11/17/24 08:48> History of Present Illness Chief Complaint: Flank Pain Informant: patient and spouse/S.O. Narrative Narrative: Sudden left flank pain an hour prior to arrival radiating to her left side. Nausea due to pain. No vomiting. No recent changes in urine. No hematuria no dysuria. History of multiple kidney stones in the past however last kidney stone 10 years ago requiring intervention. Antibiotic allergies to Macrobid and sulfa as. Allergy to codeine. Has tolerated morphine in the past. Denies history of gastric ulcers or kidney injury. Prior similar symptoms: Yes [facility] <Dr. Luis Miguel Reyes DO - Last Filed: 11/17/24 08:48> [facility] Medical History Asthma Hyperlipidemia Home Medications ?Medication ?Instructions ?Recorded ?Last Taken ?Type trazodone 50 mg tablet 50 mg PO QHS 07/10/14 Unknown History albuterol sulfate 2.5 mg/3 mL 2.5 mg inhalation Q4H PRN PRN Sob 11/13/17 Unknown History (0.083 %) solution for nebulization &/Or Wheezing aspirin 81 mg tablet,delayed 81 mg PO DAILY@0800 11/13/17 Unknown History release atorvastatin 10 mg tablet 10 mg PO QODAY 11/13/17 Unknown History budesonide-formoterol HFA 160 1 puff inhalation BID 11/13/17 11/19/17 06:30 History mcg-4.5 mcg/actuation aerosol 1 PUFF inhaler (Symbicort) cholecalciferol (vitamin D3) 50 2,000 unit PO DAILY 11/13/17 Unknown History mcg (2,000 unit) capsule (Vitamin D3) coenzyme Q10 100 mg-vitamin E 10 1 ea PO QHS 11/13/17 Unknown History unit capsule cyclosporine 0.05 % eye drops in a 1 drp BID 11/13/17 Unknown History dropperette (Restasis) escitalopram oxalate 10 mg tablet 10 mg PO QHS 11/13/17 Unknown History estradiol 0.01% (0.1 mg/gram) 1 dose vaginal QWEEK 11/13/17 Unknown History vaginal cream (Estrace) iron, carbonyl 45 mg tablet 45 mg PO QODAY 11/13/17 Unknown History (Feosol) multivitamin (Multiple Vitamins 1 ea PO DAILY 11/13/17 Unknown History tablet) omega-3 fatty acids-fish oil 340 1 ea PO DAILY 11/13/17 Unknown History mg-1,000 mg capsule (Fish Oil) gabapentin 300 mg capsule 300 mg PO TID #89 caps 05/30/22 Unknown Rx hydrocodone-acetaminophen 5-325mg 1 tab PO Q6H PRN pain 3 days #10 05/30/22 Unknown Rx 5mg-325mg TABLETS Allergy/AdvReac Type Severity Reaction Status Date / Time Latex, Natural Rubber Allergy Rash Verified 11/16/24 13:51 nitrofurantoin (From Allergy Rash Verified 11/16/24 13:51 Macrobid) nitrofurantoin Allergy Rash Verified 11/16/24 13:51 macrocrystalline (From Macrobid) Sulfa (Sulfonamide Allergy Unknown Verified 11/16/24 13:51 Antibiotics) codeine AdvReac Nausea/Vom/ Verified 11/16/24 13:51 Diarrhea Family History no significant family his Surgical History H/O bariatric surgery Hx of cholecystectomy History of hysterectomy Social History Smoking Status: Former smoker ROS <Dr. Luis Miguel Reyes DO - Last Filed: 11/17/24 08:48> ROS ED Constitutional Constitutional ED: Denies chills, fever(s) or sweats ENT ENT ED: Denies sore throat Cardiovascular Cardiovascular: Denies chest pain, leg edema, palpitations or racing heartbeat Respiratory/Chest Respiratory/Chest: Denies cough, dyspnea or dyspnea on exertion Gastrointestinal Gastrointestinal: Reports nausea; Denies abdominal pain, diarrhea or vomiting Genitourinary Genitourinary ED: Denies dysuria, hematuria or urinary frequency Musculoskeletal Musculoskeletal: Reports back pain; Denies extremity pain or neck pain Integumentary Denies rash or wounds Neurologic Neurologic: Denies headache(s), paresthesias or weakness EXAM <Dr. Luis Miguel Reyes DO - Last Filed: 11/17/24 08:48> Physical Exam Const Vital Signs: 11/16/24 13:52 11/16/24 13:54 11/16/24 14:51 Temperature 98.6 F 98.6 F Temperature Source Oral Oral Pulse Rate 83 83 Respiratory Rate 18 16 Blood Pressure 179/129 H 179/129 H 138/86 H Blood Pressure Mean 145 145 103 Pulse Ox 100 100 Oxygen Delivery Method Room Air Room Air 11/16/24 14:54 11/16/24 15:00 11/16/24 16:00 Temperature 98.6 F Temperature Source Oral Pulse Rate 77 77 Respiratory Rate 16 Blood Pressure 138/86 H 138/86 H 168/105 H Blood Pressure Mean 103 103 126 Pulse Ox 100 Oxygen Delivery Method Room Air 11/16/24 17:00 11/16/24 18:00 11/16/24 19:00 Temperature Temperature Source Pulse Rate 88 69 80 Respiratory Rate 14 Blood Pressure 164/107 H 153/91 H 153/91 H Blood Pressure Mean 126 111 111 Pulse Ox 98 Oxygen Delivery Method Room Air 11/16/24 20:00 11/16/24 20:58 11/16/24 21:00 Temperature 98.6 F Temperature Source Pulse Rate 80 85 Respiratory Rate 15 Blood Pressure 171/91 H 159/77 H 159/77 H Blood Pressure Mean 117 104 104 Pulse Ox 98 Oxygen Delivery Method 11/16/24 22:00 11/16/24 23:00 11/17/24 00:00 Temperature Temperature Source Pulse Rate 84 77 79 Respiratory Rate Blood Pressure 139/86 H 125/88 H 166/93 H Blood Pressure Mean 103 100 117 Pulse Ox 97 Oxygen Delivery Method Room Air 11/17/24 01:00 Temperature Temperature Source Pulse Rate 90 Respiratory Rate 16 Blood Pressure 157/95 H Blood Pressure Mean 115 Pulse Ox 97 Oxygen Delivery Method Positive well nourished and well developed Constitutional Narrative: Uncomfortable nontoxic General Appearance ED: well developed HEENT Reports moist mucous membranes normocephalic and atraumatic Eyes General Eye ED: Yes normal appearance of both eyes Neck full ROM Chest Wall Chest: Negative for tenderness Resp normal respiratory effort and normal air movement Effort and Inspection: symmetric chest movement; Negative for respiratory distress Cardio regular rate, regular rhythm and no murmurs Peripheral Pulses: pulses 2+ throughout GI normal to inspection, nondistended, normoactive bowel sounds and non-tender Palpation: Negative for guarding or rebound tenderness present Back/Spine no CVA tenderness Extremity normal to inspection General Extremety ED: Negative for edema or tenderness General Extremity: Negative for edema Neuro oriented x3 and no sensory deficits noted Sensorium / Orientation: awake and alert Skin no rashes or lesions noted and no wounds <Dr. Boston Frederick, DO - Last Filed: 11/16/24 22:16> Physical Exam Const Vital Signs: 11/16/24 13:52 11/16/24 13:54 11/16/24 14:51 Temperature 98.6 F 98.6 F Temperature Source Oral Oral Pulse Rate 83 83 Respiratory Rate 18 16 Blood Pressure 179/129 H 179/129 H 138/86 H Blood Pressure Mean 145 145 103 Pulse Ox 100 100 Oxygen Delivery Method Room Air Room Air 11/16/24 14:54 11/16/24 15:00 11/16/24 16:00 Temperature 98.6 F Temperature Source Oral Pulse Rate 77 77 Respiratory Rate 16 Blood Pressure 138/86 H 138/86 H 168/105 H Blood Pressure Mean 103 103 126 Pulse Ox 100 Oxygen Delivery Method Room Air 11/16/24 17:00 11/16/24 18:00 11/16/24 19:00 Temperature Temperature Source Pulse Rate 88 69 80 Respiratory Rate 14 Blood Pressure 164/107 H 153/91 H 153/91 H Blood Pressure Mean 126 111 111 Pulse Ox 98 Oxygen Delivery Method Room Air 11/16/24 20:00 11/16/24 20:58 11/16/24 21:00 Temperature 98.6 F Temperature Source Pulse Rate 80 85 Respiratory Rate 15 Blood Pressure 171/91 H 159/77 H 159/77 H Blood Pressure Mean 117 104 104 Pulse Ox 98 Oxygen Delivery Method 11/16/24 22:00 11/16/24 23:00 11/17/24 00:00 Temperature Temperature Source Pulse Rate 84 77 79 Respiratory Rate Blood Pressure 139/86 H 125/88 H 166/93 H Blood Pressure Mean 103 100 117 Pulse Ox 97 Oxygen Delivery Method Room Air 11/17/24 01:00 Temperature Temperature Source Pulse Rate 90 Respiratory Rate 16 Blood Pressure 157/95 H Blood Pressure Mean 115 Pulse Ox 97 Oxygen Delivery Method MDM <Dr. Luis Miguel Reyes, DO - Last Filed: 11/17/24 08:48> MDM MDM Narrative Medical decision making narrative: Interventions / MDM: Differential diagnosis: Urolithiasis, renal colic, kidney stones, kidney injury Diagnosis considered but do not suspect: N/A My EKG interpretation: N/A Imaging independently reviewed and interpreted by myself: CT abdomen pelvis: 7 mm proximal ureteral stone with mild hydronephrosis. External documents reviewed: N/A Test considered but not ordered:N/A ED course: Patient uncomfortable history of kidney stones. Renal stone protocol initiated. IV established for morphine Toradol Zofran with fluids. Urine ordered labs and CT scan. 155: CT scan noting 6 x 5 x 7 mm proximal stone. Pain is returning. White count 9.3. Creatinine 1.24 up from 0.96 compared to 2022. GFR down to 49 from 62. Per discussion with the patient she is followed closely by urologist at [facility] Dr. Patton, she states low-grade bladder cancer diagnosed in 2012 she recently had 3 treatments for BCG for maintenance treatment last time a month ago. She follows Dr. Patton every 3 months. With her size of her stone and pain, will likely need intervention. I did discuss with [facility] Transfer line will reach out to Dr. Patton for disposition plans. 1700: Pain was still there, however better than arrival. Reports no changes from the second treatment. Will dose with IV Dilaudid. Urine 25 leukocytes 10-25 squamous cells 50-100 RBCs. No urinary symptoms. Not likely infection. Blood pressure currently stable. Awaiting callback from transfer line with urology. 1745: I spoke with transfer line with urologist Dr. Hill, discussed patient's history and findings. She is followed closely by Dr. Patton. She does agree that patient be best served by urology there as she is followed closely with Dr. Hill. She did know Dr. Patton does procedures on . Agreed to take her as primary service as a direct admission with the transfer line. However per transfer line no current beds available. Second option was to go ER to the ER for boarding therefore urology to see the patient in manage. Initial option was for close outpatient follow-up.Image studies will be pushed up to [facility]. Patient's pain more controlled at this time compared to earlier. I discussed with her the options, she would still prefer to go to [facility] Where her urologist is for the potential procedure. Patient would not want outpatient follow-up this time. Will monitor in the ED. Will reevaluate. Re-evaluation: stable Disposition discussed with patient/family/significant other: Patient and significant other Case discussed with consulting clinician: [facility] Urologist Dr. Hill This note was generated with [employer] dictation software. It may contain incorrect words, spelling, and punctuation that were not noted in checking the note before signing. Lab Data Attestation: I reviewed the patient's lab results. Labs: Laboratory Results - last 24 hr 11/16/24 11/16/24 14:15 15:00 WBC 9.3 RBC 4.55 Hgb 14.4 Hct 42.4 MCV 93.2 MCH 31.6 MCHC 34.0 RDW Std Deviation 42.5 RDW Coeff of Vidya 12.4 Plt Count 214 MPV 12.0 Immature Gran % (Auto) 0.400 Neut % (Auto) 74.9 H Lymph % (Auto) 15.4 L [place] % (Auto) 6.4 Eos % (Auto) 2.5 Baso % (Auto) 0.4 Absolute Neuts (auto) 7.0 Absolute Lymphs (auto) 1.43 Nucleated RBC % 0 Sodium 137 Potassium 4.0 Chloride 104 Carbon Dioxide 20.1 L Anion Gap 13 BUN 24 H Creatinine 1.24 H Estim Creat Clear Calc 47.39 L Est GFR (MDRD) Non-Af 49 L BUN/Creatinine Ratio 19.1 Glucose 103 H Calcium 10.0 Urine Color Yellow Urine Clarity Cloudy Urine pH 5.0 Ur Specific Commerce 1.025 Urine Protein 30 H Urine Glucose (UA) Normal Urine Ketones 5 H Urine Occult Blood 250 H Urine Nitrite Negative Urine Bilirubin Negative Urine Urobilinogen Normal Ur Leukocyte Esterase 25 H Urine RBC 50-100 SEEN Urine WBC 0-5 SEEN Ur Squamous Epith Cells 10-25 SEEN Ur Transition Epith Cell 0-5 SEEN Calcium Oxalate Crystal 1+ Uric Acid Crystals 1+ Urine Bacteria 0 SEEN Urine Mucus 0 SEEN Radiography Diagnostic Testing: Clinical Impression(s) from Imaging Studies Abdomen/Pelvis CT 11/16/24 14:06 IMPRESSION: 1. 6 x 5 x 7 mm calculus in the proximal LEFT ureter just beyond the UPJ with mild fullness of the upstream renal pelvis, however without zachary hydronephrosis. Additional nonobstructing intrarenal/parenchymal calculi bilaterally. 2. Additional description as above. Reading Location: [id number] <Dr. Boston Frederick, DO - Last Filed: 11/16/24 22:16> MDM Lab Data Labs: Laboratory Results - last 24 hr 11/16/24 11/16/24 14:15 15:00 WBC 9.3 RBC 4.55 Hgb 14.4 Hct 42.4 MCV 93.2 MCH 31.6 MCHC 34.0 RDW Std Deviation 42.5 RDW Coeff of Vidya 12.4 Plt Count 214 MPV 12.0 Immature Gran % (Auto) 0.400 Neut % (Auto) 74.9 H Lymph % (Auto) 15.4 L [place] % (Auto) 6.4 Eos % (Auto) 2.5 Baso % (Auto) 0.4 Absolute Neuts (auto) 7.0 Absolute Lymphs (auto) 1.43 Nucleated RBC % 0 Sodium 137 Potassium 4.0 Chloride 104 Carbon Dioxide 20.1 L Anion Gap 13 BUN 24 H Creatinine 1.24 H Estim Creat Clear Calc 47.39 L Est GFR (MDRD) Non-Af 49 L BUN/Creatinine Ratio 19.1 Glucose 103 H Calcium 10.0 Urine Color Yellow Urine Clarity Cloudy Urine pH 5.0 Ur Specific Commerce 1.025 Urine Protein 30 H Urine Glucose (UA) Normal Urine Ketones 5 H Urine Occult Blood 250 H Urine Nitrite Negative Urine Bilirubin Negative Urine Urobilinogen Normal Ur Leukocyte Esterase 25 H Urine RBC 50-100 SEEN Urine WBC 0-5 SEEN Ur Squamous Epith Cells 10-25 SEEN Ur Transition Epith Cell 0-5 SEEN Calcium Oxalate Crystal 1+ Uric Acid Crystals 1+ Urine Bacteria 0 SEEN Urine Mucus 0 SEEN Radiography Diagnostic Testing: Clinical Impression(s) from Imaging Studies Abdomen/Pelvis CT 11/16/24 14:06 IMPRESSION: 1. 6 x 5 x 7 mm calculus in the proximal LEFT ureter just beyond the UPJ with mild fullness of the upstream renal pelvis, however without zachary hydronephrosis. Additional nonobstructing intrarenal/parenchymal calculi bilaterally. 2. Additional description as above. Reading Location: [id number] Treatment and Re-Evaluation :: Care of the patient was turned over to nm pending transfer. Case was discussed with Dr. Chyna Cruz in the emergency department at [facility]. Patient will be transferred to the emergency department there. Patient understood and was agreeable with plan. Discharge Plan Triage Chief Complaint: Flank Pain ED Provider: Luis Miguel Reyes Dx/Rx/DC Orders Clinical Impression: Urolithiasis, Renal colic on left side, History of bladder cancer Prescriptions: No Action trazodone 50 MG tablet 50 mg PO QHS multivitamin [Multiple Vitamins] 1 EACH tablet 1 ea PO DAILY atorvastatin 10 MG tablet 10 mg PO QODAY aspirin 81 MG tablet 81 mg PO DAILY@0800 Patient Comments: will stop 5 days prior iron, carbonyl [Feosol] 45 MG capsule 45 mg PO QODAY escitalopram oxalate 10 MG tablet 10 mg PO QHS cyclosporine [Restasis] 1 DROP dropperette 1 drp Each Eye BID omega-3 fatty acids-fish oil [Fish Oil] 1 EACH capsule 1 ea PO DAILY budesonide-formoterol [Symbicort] 1 INHALER inhaler 1 puff inhalation BID cholecalciferol (vitamin D3) [Vitamin D3] 2,000 UNIT capsule 2,000 unit PO DAILY coenzyme [id number] 1 EACH capsule 1 ea PO QHS albuterol sulfate 2.5 MG/3 ML solution for nebulization 2.5 mg inhalation Q4H PRN PRN (Reason: Sob &/Or Wheezing) Rx Instructions: Use q4 hours and PRN for wheezing estradiol [Estrace] 42.5 GM cream 1 dose vaginal QWEEK Patient Comments: 3x per week gabapentin 300 mg capsule 300 mg PO TID Qty: 89 0RF Rx Instructions: on first day, 1 cap BID hydrocodone-acetaminophen [hydrocodone-acetaminophen] 5-325 mg tablet 1 tab PO Q6H PRN (Reason: pain) 3 Days Qty: 10 0RF Primary Care Provider: Anneliese Bland Referrals: Anneliese Balnd DO [Primary Care Provider] - Print Language: Kinyarwanda Disposition Disposition: Acute Care Hospital Discharge Location: [facility] Discharge Date/Time: 11/17/24 01:49
[2024-11-16 16:55] LABS: Red Blood Cells-Urine 50-100 SEEN /hpf (0-5); Squamous Epithelial Cells - UA 10-25 SEEN /hpf (5-10)
[2024-11-16 16:57] LABS: Calcium Oxalate Crystals Ur 1+ /hpf (<or=2+)
[2024-11-16 17:02] LABS: White Blood Cells 0-5 SEEN /hpf (0-5)
[2024-11-16 17:03] LABS: Transitional Epithelial - Ur 0-5 SEEN /hpf (0-5)
[2024-11-16 17:05] LABS: Uric Acid Crystals Ur 1+ /hpf (<or=1+)
[2024-11-16] MEDS: HYDROmorphone 1 MG/ML Syringe IV ×2 (17:07→20:41)
--- NOTE | 2024-11-16 19:51 | ED.RN ---
Accepted 172.
--- NOTE | 2024-11-16 20:22 | PCA ---
CALLED AND SET UP A WILL CALL @ 2018 FOR PHYSICIANS
[2024-11-17] VITALS: BP 166/93; PULSE 79; O2SAT 97
[2024-11-17 01:00] VITALS: BP 157/95; PULSE 90; RESP 16; O2SAT 97
[2024-11-17] MEDS: HYDROmorphone 1 MG/ML Syringe IV (01:45)
[2024-11-17] MEDS: Ondansetron 4 MG/2 ML Vial IV (01:45)
== END 2024-11-17 01:49 | disposition short-term general hospital (02) ==
LOC: ED 14:22
PROVIDERS: Emergency Provider Emergency Medicine; PCP Internal Medicine; Visit Provider Emergency Medicine
DX: N13.2 Hydronephrosis with renal and ureteral calculous obstruction (principal); E78.5 Hyperlipidemia, unspecified; J45.909 Unspecified asthma, uncomplicated; Z88.1 Allergy status to other antibiotic agents; Z88.2 Allergy status to sulfonamides; Z85.51 Personal history of malignant neoplasm of bladder; Z87.442 Personal history of urinary calculi; Z79.899 Other long term (current) drug therapy; Z87.891 Personal history of nicotine dependence
CPT/HCPCS: 74176; 80048; 81001; 85025; 87086; 87088; 96361; 96374; 96375; 96376; 99284; A4216; J2405

== ENCOUNTER → 2025-03-22 | Outpatient (CLI) | payer OTHER, SELFPAY | END | disposition home or self-care (01) | PROVIDERS: PCP Internal Medicine; Referring Provider Internal Medicine; Visit Provider Internal Medicine | DX: R82.90 Unspecified abnormal findings in urine (principal) | CPT/HCPCS: 87086; 87088 ==

== ENCOUNTER → 2025-07-02 | Outpatient (CLI) | payer OTHER, SELFPAY ==
[2025-07-02 10:10] LABS: Hematocrit 42.8 % (37-47); Hemoglobin 13.9 g/dL (12.0-15.0); Immature Granulocytes Count 0.010 X10^3/uL (0.0-0.0); Mean Corp Hgb Conc 32.5 g/dL (32-36); Mean Corpuscular Volume 96.8 fL (81-99); Mean Platelet Vol. 11.2 fl (6.2-12.0); NRBC Flagged by Analyzer 0 % (0-5); Platelet Count 200 K/mm3 (150-450); RBC Distribution Width CV 11.9 % (11.6-14.6); RBC Distribution Width SD 42.4 fl (35.1-43.9); Red Blood Count 4.42 M/mm3 (4.2-5.4); White Blood Count 6.1 K/mm3 (4.4-11.0)
[2025-07-02 10:47] LABS: AST(SGOT) 27 U/L (<=31); Alanine Aminotransfer ALT/SGPT 21 U/L (<=34); Albumin, Serum 4.2 g/dL (3.4-4.8); Alkaline Phosphatase 82 U/L (35-104); Anion Gap 10 (5-15); BUN 21 mg/dL (4-19); BUN/Creat Ratio 26.0 RATIO (10-20); Calcium,Total 9.8 mg/dL (7.6-11.0); Carbon Dioxide 24.3 mmol/L (21.0-32.0); Chloride 104 mmol/L (98-108); Cholesterol 141 mg/dL (<=200); Free T3 2.3 pg/mL (2.18-3.98); Globulin 2.6 g/dL (2.2-4.2); Glucose 79 mg/dL (70-99); Low Density Lipoprotein Calc. 66 mg/dL; Potassium 4.1 mmol/L (3.3-5.1); Triglycerides 63 mg/dL; Very Low Density Lipoprotein 13 mg/dL (5-40); cholesterol:hdl ratio screen 2.28
== END | disposition home or self-care (01) ==
LOC: LAB 09:58
PROVIDERS: PCP Internal Medicine; Referring Provider Internal Medicine; Visit Provider Internal Medicine
DX: I10 Essential (primary) hypertension (principal); R79.89 Other specified abnormal findings of blood chemistry; E78.2 Mixed hyperlipidemia; K76.0 Fatty (change of) liver, not elsewhere classified
CPT/HCPCS: 36415; 80053; 80061; 82105; 84439; 84443; 84481; 85025